=== PATIENT | female | born 1980 | race Caucasian/White ===

== ENCOUNTER → 2018-03-06 17:01 | Outpatient (REF) | payer OTHER, SELFPAY ==
[2018-03-06 18:08] LABS: T4 (Thyroxine) 11.5 ug/dl (4.7-13.3); Thyroid Stimulating Hormone 3.81 uIU/ml (0.358-3.740)
== END ==
LOC: LAB 17:01
PROVIDERS: Physician Assistant; Visit Provider Emergency Medicine
DX: E03.9 Hypothyroidism, unspecified (principal)
CPT/HCPCS: 84436; 84443

== ENCOUNTER → 2018-06-12 09:11 | Outpatient (CLI) | payer OTHER, SELFPAY ==
[2018-06-12 09:24] LABS: Basophils % 0.4 % (0.1-2.0); Eosinophils # 0.1 K/mm3 (0.0-0.4); Eosinophils % 1.3 % (0.1-12.0); Hematocrit 46.7 % (37.0-47.0); Hemoglobin 15.5 g/dL (12.2-16.2); Lymphocytes # 1.5 K/mm3 (0.7-4.5); Lymphocytes % 18.3 % (10-50); Mean Corpuscular HGB Conc 33.2 g/dL (31.8-35.4); Mean Corpuscular Hemoglobin 30.7 pg (27.0-31.2); Mean Corpuscular Volume 92.7 fl (81-99); Mean Platelet Volume 7.9 fl (7.4-10.4); Monocytes # 0.3 K/mm3 (0.1-1.0); Neutrophils # 6.1 K/mm3 (1.8-7.8); Neutrophils % 75.9 % (37.0-80.0); Platelet Count 269 K/mm3 (142-424); Red Blood Count 5.04 M/mm3 (4.20-5.40); Red Cell Distribution Width 12.8 % (11.5-17.5); White Blood Count 8.1 K/mm3 (4.8-10.8)
[2018-06-12 09:42] LABS: Alanine Aminotransferase 36 U/L (12-78); Albumin/Globulin Ratio 1.1 (1.1-1.8); Alkaline Phosphatase 51 U/L (46-116); Anion Gap 14.7 mEq/L (5-15); Aspartate Amino Transferase 18 U/L (15-37); Bilirubin,Total 1.1 mg/dL (0.2-1.0); Blood Urea Nitrogen 10 mg/dL (7-18); CKMB Relative Index 0.9 U/L (0-4.0); Calcium 8.8 mg/dL (8.5-10.1); Carbon Dioxide 24 mmol/L (21.0-32.0); Chloride 103 mmol/L (98-107); Chol/HDL Ratio 2.6 (1-3.5); Cholesterol 236 mg/dL (140-200); Creatine Kinase 115 U/L (26-192); Creatinine,Serum 0.96 mg/dL (0.55-1.02); Estimated Glomerular Filt Rate 65 ml/min (>60); GFR (African American) 79 ML/MIN (>60); Globulin 3.8 gm/dl (1.3-3.2); Glucose 116 mg/dL (74-106); HDL Cholesterol 90 mg/dL (29-89); LDL Cholesterol 124 mg/dL (0-130); Potassium 3.7 mmoL/L (3.5-5.1); Sodium 138 mmol/L (136-145); T4 (Thyroxine) 11.4 ug/dl (4.7-13.3); Total Protein,Serum 7.8 gm/dL (6.4-8.2); Triglycerides 111 mg/dL (30-200); Troponin I < 0.02 ng/ml (0.00-0.06); VLDL Cholesterol 22 mg/dL (0-40)
[2018-06-13 15:23] LABS: Folate >20.0 ng/mL (>3.0); Vitamin B12 895 pg/mL (232-1245); Vitamin D 25 Hydroxy 25.3 ng/mL (30.0-100.0)
== END ==
PROVIDERS: Visit Provider Physician Assistant
DX: E03.9 Hypothyroidism, unspecified (principal); R00.2 Palpitations
CPT/HCPCS: 80053; 80061; 82550; 82553; 82607; 82652; 82746; 84436; 84443; 84484; 85025

== ENCOUNTER → 2018-09-09 13:33 | Outpatient (CLI) | payer OTHER, SELFPAY ==
[2018-09-09 13:46] LABS: Basophils % 0.5 % (0.1-2.0); Eosinophils # 0.2 K/mm3 (0.0-0.4); Eosinophils % 3.2 % (0.1-12.0); Hemoglobin 14.3 g/dL (12.2-16.2); Lymphocytes # 2.1 K/mm3 (0.7-4.5); Mean Corpuscular HGB Conc 33.2 g/dL (31.8-35.4); Mean Corpuscular Hemoglobin 31.1 pg (27.0-31.2); Mean Corpuscular Volume 93.6 fl (81-99); Mean Platelet Volume 9.6 fl (7.4-10.4); Monocytes # 0.4 K/mm3 (0.1-1.0); Monocytes % 5.6 % (1.7-9.3); Neutrophils # 3.7 K/mm3 (1.8-7.8); Neutrophils % 57.6 % (37.0-80.0); Platelet Count 232 K/mm3 (142-424); Red Blood Count 4.59 M/mm3 (4.20-5.40); Red Cell Distribution Width 12.7 % (11.5-17.5); White Blood Count 6.4 K/mm3 (4.8-10.8)
[2018-09-09 14:25] LABS: Alanine Aminotransferase 32 U/L (12-78); Albumin Level 3.7 gm/dL (3.4-5.0); Albumin/Globulin Ratio 1.1 (1.1-1.8); Alkaline Phosphatase 44 U/L (46-116); Anion Gap 14.8 mEq/L (5-15); Aspartate Amino Transferase 24 U/L (15-37); Blood Urea Nitrogen 16 mg/dL (7-18); Calcium 8.7 mg/dL (8.5-10.1); Carbon Dioxide 26 mmol/L (21.0-32.0); Chloride 105 mmol/L (98-107); Chol/HDL Ratio 2.6 (1-3.5); Cholesterol 166 mg/dL (140-200); Creatinine,Serum 0.93 mg/dL (0.55-1.02); Estimated Glomerular Filt Rate 67 ml/min (>60); GFR (African American) 81 ML/MIN (>60); Globulin 3.5 gm/dl (1.3-3.2); Glucose 98 mg/dL (74-106); HDL Cholesterol 63 mg/dL (29-89); LDL Cholesterol 82 mg/dL (0-130); Potassium 3.8 mmoL/L (3.5-5.1); Sodium 142 mmol/L (136-145); Total Protein,Serum 7.2 gm/dL (6.4-8.2); Triglycerides 104 mg/dL (30-200); VLDL Cholesterol 21 mg/dL (0-40)
[2018-09-11 07:32] LABS: Vitamin D 25 Hydroxy 40.7 ng/mL (30.0-100.0)
== END ==
PROVIDERS: Visit Provider Physician Assistant
DX: E03.9 Hypothyroidism, unspecified (principal); E55.9 Vitamin D deficiency, unspecified; E78.5 Hyperlipidemia, unspecified
CPT/HCPCS: 80053; 80061; 82652; 84436; 84443; 85025

== ENCOUNTER → 2019-03-10 13:35 | Outpatient (CLI) | payer OTHER, SELFPAY ==
[2019-03-10 14:32] LABS: T4 (Thyroxine) 11.9 ug/dl (4.7-13.3); Thyroid Stimulating Hormone 0.29 uIU/ml (0.358-3.740)
== END ==
PROVIDERS: Visit Provider Physician Assistant
DX: E03.9 Hypothyroidism, unspecified (principal)
CPT/HCPCS: 84436; 84443

== ENCOUNTER → 2019-04-03 13:18 | Outpatient (CLI) | payer OTHER, SELFPAY ==
[2019-04-03 13:40] LABS: Basophils % 0.5 % (0.1-2.0); Eosinophils # 0.2 K/mm3 (0.0-0.4); Eosinophils % 2.2 % (0.1-12.0); Hematocrit 45.4 % (37.0-47.0); Hemoglobin 14.9 g/dL (12.2-16.2); Lymphocytes # 1.4 K/mm3 (0.7-4.5); Lymphocytes % 21.6 % (10-50); Mean Corpuscular HGB Conc 32.7 g/dL (31.8-35.4); Mean Corpuscular Hemoglobin 31.1 pg (27.0-31.2); Monocytes # 0.4 K/mm3 (0.1-1.0); Monocytes % 5.5 % (1.7-9.3); Neutrophils # 4.7 K/mm3 (1.8-7.8); Neutrophils % 70.2 % (37.0-80.0); Platelet Count 306 K/mm3 (142-424); Red Blood Count 4.78 M/mm3 (4.20-5.40); Red Cell Distribution Width 12.7 % (11.5-17.5); White Blood Count 6.6 K/mm3 (4.8-10.8)
[2019-04-03 15:01] LABS: Alanine Aminotransferase 20 U/L (12-78); Albumin Level 3.9 gm/dL (3.4-5.0); Albumin/Globulin Ratio 1.1 (1.1-1.8); Alkaline Phosphatase 46 U/L (46-116); Anion Gap 14.8 mEq/L (5-15); Aspartate Amino Transferase 15 U/L (15-37); Bilirubin,Total 1.3 mg/dL (0.2-1.0); Blood Urea Nitrogen 10 mg/dL (7-18); Calcium 8.9 mg/dL (8.5-10.1); Carbon Dioxide 26 mmol/L (21.0-32.0); Chloride 104 mmol/L (98-107); Chol/HDL Ratio 2.6 (1-3.5); Cholesterol 167 mg/dL (140-200); Creatinine,Serum 0.93 mg/dL (0.55-1.02); Estimated Glomerular Filt Rate 67 ml/min (>60); GFR (African American) 81 ML/MIN (>60); Globulin 3.4 gm/dl (1.3-3.2); Glucose 91 mg/dL (74-106); HDL Cholesterol 65 mg/dL (29-89); LDL Cholesterol 77 mg/dL (0-130); Potassium 3.8 mmoL/L (3.5-5.1); Sodium 141 mmol/L (136-145); T4 (Thyroxine) 11.8 ug/dl (4.7-13.3); Thyroid Stimulating Hormone 2.01 uIU/ml (0.358-3.740); Total Protein,Serum 7.3 gm/dL (6.4-8.2); Triglycerides 123 mg/dL (30-200); VLDL Cholesterol 25 mg/dL (0-40)
[2019-04-04 17:13] LABS: Folate >20.0 ng/mL (>3.0); Vitamin D 25 Hydroxy 27.8 ng/mL (30.0-100.0)
== END ==
PROVIDERS: Visit Provider Physician Assistant
DX: E55.9 Vitamin D deficiency, unspecified (principal); E78.5 Hyperlipidemia, unspecified
CPT/HCPCS: 80053; 80061; 82652; 82746; 84436; 84443; 85025

== ENCOUNTER → 2019-04-14 15:18 | Outpatient (CLI) | payer OTHER, SELFPAY ==
--- NOTE | 2019-04-14 15:21 | US_ITS ---
PROCEDURE: US THYROID CLINICAL INDICATION: Thyroid goiter Goiter, Stas's thyroiditis COMPARISON: THY US THYROID from 01/22/2013 FINDINGS: Right lobe: 3.5 x 0.8 x 1.2 cm. Coarse echogenicity. There is a 9 x 6 mm hypoechoic nodule in the mid polar region posteriorly Left lobe: 2.5 x 0.7 by 0.6 cm with coarse echogenicity but no discrete nodule. Isthmus: Unremarkable Additional findings: IMPRESSION: Small thyroid gland with heterogeneous echogenicity. There is a 9 x 6 mm hypoechoic nodule in the mid polar region on the right previously measuring 1.4 x 0.9 cm. Dictated by: Romulo Dolan MD 04/14/2019 17:37 Electronically signed by Romulo Dolan MD in [place] 04/14/2019 17:37
--- NOTE | 2019-04-14 15:21 | XR_ITS ---
PROCEDURE: XR CERVICAL SPINE 4V CLINICAL INDICATION: Neck pain/headache COMPARISON: No exams were available for comparison FINDINGS: Normal alignment. No fracture or dislocation. No lytic or blastic change. The disc spaces are well preserved. No foraminal narrowing apparent. IMPRESSION: Negative cervical spine Dictated by: Romulo Dolan MD 04/14/2019 16:39 Electronically signed by Romulo Dolan MD in [place] 04/14/2019 16:39
== END ==
PROVIDERS: PCP Physician Assistant; Visit Provider Physician Assistant
DX: M54.2 Cervicalgia (principal); E04.9 Nontoxic goiter, unspecified
CPT/HCPCS: 72050; 76536

== ENCOUNTER → 2019-04-23 09:56 | Outpatient (CLI) | payer OTHER, SELFPAY ==
--- NOTE | 2019-04-23 | CA_ITS ---
APPROVED REPORT Exam: Exercise Treadmill Technologist: Renata Lin Ht: 5 ft 7 in Wt: 175 lbs BSA: 1.91 m2 HR: 61 bpm BP: 133/78 mmHg Indications: CAD Medical History Medications: Aspirin,,,,, Synthroid,,,,, Zocor,,,,, Vitamin D,,,,, Stress Test Details Test: Isaiah HR Resting HR: 74 bpm Max Heart Rate (APMHR): 181 bpm Max HR Achieved: 175 bpm Target HR (85% APMHR): 153 bpm % of APMHR: 96 Recovery HR: 90 bpm BP Max BP: 163.0/89.0 mmHg Recovery BP: 141.0/79.0 mmHg ECG Clinical Exercise duration: 10:30 min Highest Stage Achieved: Exercise capacity: 12.8 METs Stress ECG Conclusion Resting ECG: Sinus arrhythmia, right axis deviation, NS ST abnormality. Patient exercised 10:30 on Isaiah Protocol. Test stopped due to shortness of air, fatigue. Symptoms: No chest pain Arrhythmias/Ectopy: Occasional isolated PVC. ST-T Changes: 1.5 to [address] depression inferiorly and 1 mm laterally. Conclusion: EKG changes positive for ischemia. Myoview images reported separately. Test Summary Stage 4 01:30 16.0 4.2 172 . . . . REST 10:21 0.0 0.0 74 . . . . Stage 1 01:00 10.0 1.7 91 . . . . Stage 1 02:00 10.0 1.7 100 . . . . Stage 1 03:00 10.0 1.7 110 . 150/ 78 . . Stage 2 01:00 12.0 2.5 114 . . . . Stage 2 02:00 12.0 2.5 124 . . . . Stage 2 03:00 12.0 2.5 121 . 152/ 74 . . Stage 3 01:00 14.0 3.4 136 . . . . Stage 3 02:00 14.0 3.4 144 . . . . Stage 3 03:00 14.0 3.4 155 . 160/ 76 . . Stage 4 . . . . . . . Myoview Injected Stage 4 01:00 16.0 4.2 168 . . . . Stage 4 01:30 16.0 4.2 172 . . . Stop exercise at 10:30 RECOVERY 01:00 0.0 0.0 157 . 144/ 66 . . RECOVERY 02:00 0.0 0.0 135 . 144/ 66 . . RECOVERY 03:00 0.0 0.0 114 . 163/ 89 . . RECOVERY 04:00 0.0 0.0 108 . 163/ 89 . . RECOVERY 05:00 0.0 0.0 99 . 133/ 80 . . RECOVERY 06:00 0.0 0.0 97 . 133/ 80 . . RECOVERY 07:00 0.0 0.0 91 . 133/ 80 . . RECOVERY 07:16 0.0 0.0 95 . 141/ 79 . . Electronically signed by : Al Durham, 04/29/2019 15:03:13
--- NOTE | 2019-04-23 09:57 | NM_ITS ---
APPROVED REPORT Exam: Nuclear Stress Test Indication: CAD, H/O M.I., HYPERLIPIDEMIA, ADN EKG Patient Location: Outpatient Stress Tech: Renata Lin RI Tech:FATUMA Martinez RT (R)(N)(M) Ht: 5 ft 7 in Wt: 175 lbs Bra Size: C HR: 61 bpm BP: 133/78 mmHg BSA: 1.91 m2 BMI: 27.4 History: CAD, H/O M.I., HYPERLIPIDEMIA, ADN EKG Procedure: Patient exercised on Isaiah protocol 10:30 minutes and sec, resting heart rate 61 bpm, resting blood pressure 133/78 mmHg, with exercise maximum heart rate achived was 175 bpm which is % of the maximum predicted heart rate and blood pressure was 150/76 mmHg. Patient denied any complaint of chest pain. Cardiac Stress and Resting SPECT Images: Cardiac Stress and Resting SPECT images were obtained using technetium 99m Myoview 31.1 mCi stress and 10.50 mCi at rest. EF 67% Breast attenuation artifact anterior/septal region No fixed or reversible defects Conclusion: Normal EF with no evidence of ischemia or infarction Electronically signed by : Romulo Dolan MD 04/25/2019 09:26:22
--- NOTE | 2019-04-23 09:57 | CA_ITS ---
[facility] RADIOLOGICAL CONSULTATION Patient Name : JENNIFER HOANG X-RAY # : [id number] Physician: RAVINDER SONG AGE: 38Y : 1980 00:00:00 ( F ) Exam : CA ECHO DOPPLER COMPLETE ACC # : [id number] Study Date : 04/23/2019 10:13:42 Patient Class : O FINAL REPORT CLINICAL DATA: FINDINGS: TRANSCRIBED REPORT EXAM: Comprehensive 2D, Doppler, and color-flow Echocardiogram Marine Equipment Design Engineer: Brittanie Mason RDCS Ht: 5 ft 6 in Wt: 177lbs BSA: 1.90 BP: 118/75 mmHg Indications: Abnormal ECG, CAD, Hyperlipidemia, Hypertension/HDD,HX OF SC 2D Dimensions LVOT 1.95 cm (M/F) 1.5-2.5 M-Mode Dimensions RVDd 2.04 cm (0.9-2.6) LVDd 5.16 cm (3.5-5.7) LVDs 3.24 cm (3.5-5.7) IVSd 0.70 cm (0.6-1.1) PWd 0.70 cm (0.6-1.1) EF (Teich) 66.80% FS 37.20% EDV (Teich) 127.20 mL ESV (Teich) 42.20 mL LV Diastology E/A Ratio 1.44 Mitral Valve MV A Velocity 60.00 (40-130 cm/s) Electronically signed by : IMPRESSION: Dictated by at Transcribed by at
--- NOTE | 2019-04-23 13:22 | HMH.ITSHM ---
Current Home Medications as stated by this patient Julieta Dejesus or field representative. []zocor synthroid asa vit d
== END ==
PROVIDERS: PCP Physician Assistant; Visit Provider Physician Assistant
DX: I25.2 Old myocardial infarction (principal); E78.5 Hyperlipidemia, unspecified; I10 Essential (primary) hypertension; R94.31 Abnormal electrocardiogram [ECG] [EKG]
CPT/HCPCS: 78452; 93017; 93306; A9502

== ENCOUNTER → 2019-04-28 14:06 | Outpatient (CLI) | payer OTHER, SELFPAY ==
--- NOTE | 2019-04-28 14:10 | CT_ITS ---
PROCEDURE: CT SOFT TISSUE NECK WO CON CLINICAL HISTORY: Posterior neck pain, goiter, COMPARISON: No exams were available for comparison TECHNIQUE: Oral Contrast: None IV Contrast: None Axial images obtained with sagittal and coronal reformats. All CT scans at the facility use one or more dose reduction, viz: automated exposure control, ma/kV adjustment per patient size (including targeted exams where dose is matched to indication, i.e. head), or iterative reconstruction technique. FINDINGS: No mass, abnormal fluid collection, or dominant adenopathy is evident. There are scattered small nodes in the neck on both sides. The parotid and submandibular glands are unremarkable. The nasopharynx, oropharynx, hypopharynx, epiglottis, and glottic region have an unremarkable appearance. There is some mild attenuation of the left aryepiglottic fold which could be due to nondistention. No obvious thyroid mass. Lung apices are clear. No acute bony findings. IMPRESSION: Essentially negative nonenhanced CT scan of the neck Dictated by: Romulo Dolan MD 04/30/2019 06:05 Electronically signed by Romulo Dolan MD in [place] 04/30/2019 06:05
--- NOTE | 2019-04-28 14:10 | CT_ITS ---
PROCEDURE: CT HEAD/BRAIN WO CON CLINICAL INDICATION: see below Posterior headaches, posterior neck pain COMPARISON: No exams were available for comparison TECHNIQUE: Axial images obtained. All CT scans at the facility use one or more dose reduction, viz: automated exposure control, ma/kV adjustment per patient size (including targeted exams where dose is matched to indication, i.e. head), or iterative reconstruction technique. FINDINGS: No midline shift, mass effect, intracranial hemorrhage, hydrocephalus, or extra-axial fluid collection is evident. The calvarium has an unremarkable appearance. No mastoid effusion. No sinus air-fluid level. IMPRESSION: No acute intracranial finding Dictated by: Romulo Dolan MD 04/28/2019 15:45 Electronically signed by Romulo Dolan MD in [place] 04/28/2019 15:45
== END ==
PROVIDERS: PCP Physician Assistant; Visit Provider Physician Assistant
DX: R51 Headache (principal); M54.2 Cervicalgia; E04.1 Nontoxic single thyroid nodule; R13.10 Dysphagia, unspecified; R23.2 Flushing
CPT/HCPCS: 70450; 70490

== ENCOUNTER → 2019-06-09 14:42 | Outpatient (CLI) | payer OTHER, SELFPAY ==
[2019-06-09 15:09] LABS: Basophils % 0.5 % (0.1-2.0); Eosinophils # 0.2 K/mm3 (0.0-0.4); Eosinophils % 2.1 % (0.1-12.0); Hematocrit 48.8 % (37.0-47.0); Hemoglobin 15.2 g/dL (12.2-16.2); Lymphocytes # 1.9 K/mm3 (0.7-4.5); Lymphocytes % 21.4 % (10-50); Mean Corpuscular HGB Conc 31.1 g/dL (31.8-35.4); Mean Corpuscular Hemoglobin 30.2 pg (27.0-31.2); Mean Corpuscular Volume 96.9 fl (81-99); Mean Platelet Volume 9.7 fl (7.4-10.4); Monocytes # 0.5 K/mm3 (0.1-1.0); Monocytes % 5.7 % (1.7-9.3); Neutrophils # 6.2 K/mm3 (1.8-7.8); Neutrophils % 70.3 % (37.0-80.0); Platelet Count 324 K/mm3 (142-424); Red Blood Count 5.04 M/mm3 (4.20-5.40); White Blood Count 8.8 K/mm3 (4.8-10.8)
[2019-06-09 15:56] LABS: Alanine Aminotransferase 21 U/L (12-78); Albumin Level 4.1 gm/dL (3.4-5.0); Albumin/Globulin Ratio 1.1 (1.1-1.8); Alkaline Phosphatase 50 U/L (46-116); Anion Gap 13.7 mEq/L (5-15); Aspartate Amino Transferase 10 U/L (15-37); Bilirubin,Total 0.8 mg/dL (0.2-1.0); Blood Urea Nitrogen 16 mg/dL (7-18); Calcium 8.8 mg/dL (8.5-10.1); Carbon Dioxide 29 mmol/L (21.0-32.0); Chloride 101 mmol/L (98-107); Creatinine,Serum 1.03 mg/dL (0.55-1.02); Estimated Glomerular Filt Rate 60 ml/min (>60); GFR (African American) 72 ML/MIN (>60); Globulin 3.8 gm/dl (1.3-3.2); Glucose 93 mg/dL (74-106); Potassium 3.7 mmoL/L (3.5-5.1); Sodium 140 mmol/L (136-145); T4 (Thyroxine) 12.5 ug/dl (4.7-13.3); Thyroid Stimulating Hormone 5.17 uIU/ml (0.358-3.740); Total Protein,Serum 7.9 gm/dL (6.4-8.2)
[2019-06-09 16:33] LABS: Erythrocyte Sedimentation Rate 12 mm/hr (0-20)
[2019-06-11 15:30] LABS: Thyroid Peroxidase Antibodies 22 IU/mL (0-34)
[2019-06-12 13:16] LABS: Thyroglobulin Level 104.2 IU/mL (0.0-0.9)
== END ==
PROVIDERS: Visit Provider Emergency Medicine
DX: M54.2 Cervicalgia (principal)
CPT/HCPCS: 80053; 84436; 84443; 85025; 85651; 86376; 86800

== ENCOUNTER → 2019-06-16 07:32 | Outpatient (CLI) | payer OTHER, SELFPAY ==
[2019-06-23 16:39] LABS: 5-HIAA, Urine 1.6 mg/L (Undefined); 5-HIAA, Urine, 24Hr. 2.6 mg/24 hr (0.0-14.9)
== END ==
PROVIDERS: Visit Provider Physician Assistant
DX: R23.2 Flushing (principal)
CPT/HCPCS: 83497

== ENCOUNTER → 2019-08-07 11:02 | Outpatient (CLI) | payer OTHER, SELFPAY ==
--- NOTE | 2019-08-07 11:02 | MR_ITS ---
PROCEDURE: MR HEAD/BRAIN WO CON CLINICAL INDICATION: facial flushing, right mastoid pain Right mastoid pain, headache burning sensation in face COMPARISON: CT HEAD/BRAIN WO CON from 04/28/2019 TECHNIQUE: Routine multiplanar multi echo sequences are performed without gadolinium enhancement. FINDINGS: No midline shift, mass effect, intracranial hemorrhage, hydrocephalus, or acute infarction is evident. The cerebellopontine angles, cerebellum, and brainstem are unremarkable. There are 2 small T2 white matter hyperintensities in the left frontal lobe. These are nonspecific. The pituitary, optic, corpus callosum and craniocervical junction have an appearance. There is mild bulging disc at C3-C4 with narrowing of the canal at that level with minimal flattening of the cord anteriorly. No mastoid effusion or sinus air-fluid level. IMPRESSION: The 1. No acute intracranial findings. 2. Nonspecific T2 white matter hyperintensities in the left frontal lobe. These are nonspecific. The most common etiology would be small ischemic gliotic foci however the patient's age is somewhat young for that etiology. Differential diagnosis includes sequela from migraine headache or demyelinating process. Consider six-month follow-up without and with gadolinium enhancement to confirm stability. 3. Bulging disc at C3-C4 with narrowing of the canal at that level Dictated by: Romulo Dolan MD 08/08/2019 09:07 Electronically signed by Romulo Dolan MD in [place] 08/08/2019 09:07
== END ==
PROVIDERS: PCP Physician Assistant; Visit Provider Physician Assistant
DX: H92.01 Otalgia, right ear (principal); R23.2 Flushing
CPT/HCPCS: 70551

== ENCOUNTER → 2019-08-14 09:52 | Outpatient (CLI) | payer OTHER, SELFPAY ==
--- NOTE | 2019-08-14 09:52 | US_ITS ---
PROCEDURE: US FNA THYROID CLINICAL INDICATION: Hypothyroid, right thyroid nodule COMPARISON: THY US THYROID from 01/22/2013 US THYROID from 04/14/2019 TECHNIQUE: Following obtaining informed consent, using aseptic technique and local anesthesia with buffered lidocaine, fine-needle aspiration was performed of the nodule of interest using sonographic guidance. 3 passes were made into the nodule with a 21-gauge needle. Specimen was given to cytology. FINDINGS: CYTOLOGY: Nondiagnostic specimen. IMPRESSION: Nondiagnostic FNA. Repeat sampling can be performed at no additional charge clinically desired. Pathologist will be asked to be on hand for review of the specimen to confirm adequate sampling. The patient tolerated the procedure well without evidence of immediate complications and left the ultrasound suite in stable condition. Dictated by: Romulo Dolan MD 08/16/2019 11:13 Electronically signed by Romulo Dolan MD in [place] 08/16/2019 11:13
== END ==
PROVIDERS: PCP Physician Assistant; Visit Provider Physician Assistant
DX: E04.1 Nontoxic single thyroid nodule (principal)
CPT/HCPCS: 10005; 76942

== ENCOUNTER → 2020-02-22 13:20 | Outpatient (CLI) | payer OTHER, SELFPAY | PROVIDERS: PCP Physician Assistant; Visit Provider Nurse Practitioner | DX: Z03.818 Encounter for observation for suspected exposure to other biological agents ruled out (principal) | CPT/HCPCS: U0003; U0004 ==

== ENCOUNTER → 2020-02-22 17:34 | Outpatient (CLI) | payer OTHER, SELFPAY ==
[2020-02-24 15:52] LABS: Covid-19 Nasal PCR Sendout Lex POSITIVE
== END ==
PROVIDERS: PCP Emergency Medicine; Visit Provider Nurse Practitioner
DX: Z20.828 Contact with and (suspected) exposure to other viral communicable diseases (principal); U07.1 COVID-19
CPT/HCPCS: U0003; U0004

== ENCOUNTER → 2020-03-01 11:45 | Outpatient (CLI) | payer OTHER, SELFPAY ==
[2020-03-02 13:15] LABS: Covid-19 Nasal PCR Sendout Lex Positive
== END ==
PROVIDERS: PCP Emergency Medicine; Visit Provider Internal Medicine Adolescent Medicine
DX: Z20.828 Contact with and (suspected) exposure to other viral communicable diseases (principal); U07.1 COVID-19
CPT/HCPCS: U0003; U0004

== ENCOUNTER → 2020-03-02 14:30 | Outpatient (CLI) | payer OTHER, SELFPAY ==
[2020-03-02 16:50] LABS: Coronavirus 19 IgG Antibody Positive (Negative); Coronavirus 19 IgM Antibody Negative (Negative)
== END ==
PROVIDERS: PCP Physician Assistant; Visit Provider Internal Medicine Adolescent Medicine
DX: Z20.828 Contact with and (suspected) exposure to other viral communicable diseases (principal); U07.1 COVID-19
CPT/HCPCS: 36415; 86328

== ENCOUNTER → 2020-04-13 16:45 | Outpatient (CLI) | payer OTHER, SELFPAY ==
--- NOTE | 2020-04-13 16:45 | MM_ITS ---
PROCEDURE: MM DIG SCREENING MAMM BI W/CAD Digital Breast Tomosynthesis Included CLINICAL INDICATION: screening There is no personal or family history of breast cancer. COMPARISON: This is a baseline screening exam, patient without complaints TECHNIQUE: Standard CC and MLO images and 3D Tomosynthesis was obtained. R2 CAD reviewed. FINDINGS: Moderate diffuse fibroglandular densities are seen throughout both breasts. There is minimal asymmetric glandular elements near the axillary tail left breast. There is no suspicious lesion in either breast and no suspicious microcalcifications. IMPRESSION: Moderate diffuse breast density with no suspicious lesions seen BI-RAD Category: 1 Negative FOLLOW-UP: 1YR 1 Year Follow-up (A letter has been sent to the patient regarding results of the study.) Dictated by: Dr. Elpidio Talamantes MD 04/15/2020 19:43 Dr. Elpidio Talamantes MD in [place] 04/15/2020 19:43
== END ==
PROVIDERS: PCP Physician Assistant; Visit Provider Physician Assistant
DX: Z12.31 Encounter for screening mammogram for malignant neoplasm of breast (principal)
CPT/HCPCS: 77063; 77067

== ENCOUNTER → 2020-09-04 07:47 | Outpatient (CLI) | payer OTHER, SELFPAY ==
--- NOTE | 2020-09-04 07:48 | MR_ITS ---
PROCEDURE: MR HEAD/BRAIN WO/W CON CLINICAL INDICATION: headache, flushing, pain in base of head COMPARISON: MR MR HEAD/BRAIN WO CON from 08/07/2019 TECHNIQUE: Routine multiplanar multi echo sequences are performed without gadolinium enhancement. FINDINGS: No midline shift, mass effect, intracranial hemorrhage, hydrocephalus. No evidence of acute infarction. The cerebellopontine angles, cerebellum, brainstem and mid brain have an unremarkable appearance. There remains mild nonspecific T2 white matter hyperintensity within the left frontal lobe. This does not demonstrate contrast enhancement. This is not significantly changed. No new areas of white matter abnormality apparent. No abnormal enhancing lesions. No mastoid effusion or sinus air-fluid level. IMPRESSION: 1. No significant change with no acute intracranial findings. 2. No change nonspecific small focus of T2 white matter hyperintensity left frontal lobe as previously described Dictated by: Romulo Dolan MD 09/04/2020 10:27 Romulo Dolan MD in [place] 09/04/2020 10:27
== END ==
PROVIDERS: PCP Physician Assistant; Visit Provider Physician Assistant
DX: R51.9 Headache, unspecified (principal)
CPT/HCPCS: 70553; A9576

== ENCOUNTER → 2020-09-16 12:44 | Outpatient (CLI) | payer OTHER, SELFPAY ==
--- NOTE | 2020-09-16 12:45 | US_ITS ---
PROCEDURE: US FNA THYROID CLINICAL INDICATION: Right thyroid nodule. Initial nondiagnostic FNA 08/14/2019 COMPARISON: US US FNA THYROID from 08/14/2019 FINDINGS: Pre biopsy images are obtained once again demonstrating an ill-defined area of decreased echogenicity in the right thyroid lobe measuring approximately 1.3 cm not significantly changed. This area was previously sampled with FNA what was nondiagnostic. The pathologist was present on today's procedure. Following obtaining informed consent and time-out procedure under aseptic conditions and local anesthesia with 1 percent buffered lidocaine, 4 passes were made into the nodule confirmed with ultrasound. The specimen is once again nondiagnostic. In lieu of the position of the nodule and the fact it is not changed in 1 year. No additional sampling was performed. The nodule is deep in the right lobe of the thyroid gland and only mm from the carotid artery. Continued yearly follow-up suggested. IMPRESSION: Uneventful ultrasound-guided FNA of the right thyroid nodule. However, cytology was non diagnostic despite having a pathologist present with definite intra nodule location of the needle on the ultrasound. The nodule does not appear to change in 1 year. Suggest annual follow-up to confirm stability Dictated by: Romulo Dolan MD 09/24/2020 09:04 Romulo Dolan MD in [place] 09/24/2020 09:04
== END ==
PROVIDERS: PCP Physician Assistant; Visit Provider Physician Assistant
DX: E04.1 Nontoxic single thyroid nodule (principal)
CPT/HCPCS: 10005; 76536

== ENCOUNTER → 2020-10-07 12:47 | Outpatient (CLI) | payer OTHER, SELFPAY ==
--- NOTE | 2020-10-07 12:47 | CT_ITS ---
PROCEDURE: CT SOFT TISSUE NECK WO/W CON CLINICAL HISTORY: sensation of something pressing on neck/throat Right throat area x1.5yrs Hx of thyroid Face flushing Biopsy x2... COMPARISON: CT CT SOFT TISSUE NECK WO CON from 04/28/2019 US US FNA THYROID from 09/16/2020 TECHNIQUE: Oral Contrast: None IV Contrast: 75 mL Isovue 370 Axial images obtained with sagittal and coronal reformats. All CT scans at the facility use one or more dose reduction, viz: automated exposure control, ma/kV adjustment per patient size (including targeted exams where dose is matched to indication, i.e. head), or iterative reconstruction technique. FINDINGS: There is some fullness in the left fossa of Rosenmuller within the nasopharynx. No enhancing lesions. This may only be due to nondistention. Cannot exclude a mucosal abnormality. Direct visualization may provide further evaluation. The epiglottis and glottic region has an unremarkable appearance. No mass or abscess. The thyroid gland has an unremarkable appearance with no obvious mass. No surrounding abscess or hematoma. Unremarkable appearing superior mediastinum. There are few small cervical nodes but no evidence of adenopathy. The parotid and submandibular glands are unremarkable. The lung apices are clear. The visualized paranasal sinuses and mastoid sinuses are unremarkable. IMPRESSION: 1. Minimal fullness in the left fossa Rosenmuller within the nasopharynx which may only be due to nondistention. This is however present on both the pre and post enhanced images. Direct visualization may exclude mucosal edema or mucosal lesion. 2. Otherwise negative CT neck without and with contrast. Dictated by: Romulo Dolan MD 10/08/2020 12:16 Romulo Dolan MD in [place] 10/08/2020 12:16
== END ==
PROVIDERS: PCP Physician Assistant; Visit Provider Physician Assistant
DX: J39.2 Other diseases of pharynx (principal)
CPT/HCPCS: 70492; Q9967

== ENCOUNTER → 2020-10-27 07:30 | Outpatient (CLI) | payer OTHER, SELFPAY ==
[2020-10-28 16:02] LABS: H. pylori Breath Test Negative (Negative)
== END ==
PROVIDERS: Visit Provider Physician Assistant
DX: R10.11 Right upper quadrant pain (principal); R23.2 Flushing
CPT/HCPCS: 83013

== ENCOUNTER → 2020-11-02 09:25 | Outpatient (POV) | payer OTHER, SELFPAY | PROVIDERS: Visit Provider Otolaryngology | DX: Z00.00 Encounter for general adult medical examination without abnormal findings (principal) ==

== ENCOUNTER → 2020-11-09 08:08 | Outpatient (POV) | payer OTHER, SELFPAY | PROVIDERS: Visit Provider Dermatology | DX: Z00.00 Encounter for general adult medical examination without abnormal findings (principal) ==

== ENCOUNTER → 2021-01-18 07:24 | Outpatient (CLI) | payer OTHER, SELFPAY ==
--- NOTE | 2021-01-18 07:26 | CT_ITS ---
PROCEDURE: CT ABDOMEN PELVIS WO CON CLINICAL INDICATION: LLQ pain COMPARISON: CT ABDPELW/O CT ABD PELVIS W/O CONTRAST from 04/29/2014 TECHNIQUE: Axial images obtained with sagittal and coronal reformats. All CT scans at the facility use one or more dose reduction, viz: automated exposure control, ma/kV adjustment per patient size (including targeted exams where dose is matched to indication, i.e. head), or iterative reconstruction technique. FINDINGS: LOWER THORAX: Unremarkable Evaluation of the upper abdominal solid viscera is limited due to lack of intravenous contrast. HEPATOBILIARY: Liver: No focal hepatic lesions within the limitations of unenhanced study.. Gallbladder: The gallbladder is surgically absent. Biliary: No intrahepatic or extrahepatic ductal dilation. PANCREAS: No focal masses or ductal dilatation. SPLEEN:No splenomegaly. ADRENALS:No adrenal nodules. KIDNEYS/URETERS/BLADDER: Nonobstructing left renal calculus is noted measuring 5 millimeters. No evidence of hydronephrosis. PERITONEUM / RETROPERITONEUM: No free air or fluid. Peritoneum LYMPH NODES: No free air or fluid. GI TRACT: Scattered uncomplicated colonic diverticula are present. No evidence of inflammation or bowel obstruction. Appendix is normal The visualized pelvic structures are unremarkable. Essure device noted bilaterally. VASCULAR:The aorta is normal in caliber, without evidence of abdominal aortic aneurysm or dissection. ABDOMINAL WALL: Intact SOFT TISSUES: Unremarkable. BONES: Unremarkable. IMPRESSION: Few scattered colonic diverticula without evidence of diverticulitis. Left nonobstructing renal calculus measuring 5 millimeters. No evidence of hydronephrosis. Dictated by: Felicita Preston 01/18/2021 10:01 Felicita Preston in [place] 01/18/2021 10:01
== END ==
PROVIDERS: PCP Physician Assistant; Visit Provider Physician Assistant
DX: R10.32 Left lower quadrant pain (principal)
CPT/HCPCS: 74176

== ENCOUNTER → 2021-02-08 13:50 | Outpatient (CLI) | payer OTHER, SELFPAY | PROVIDERS: Visit Provider Physician Assistant | DX: N76.0 Acute vaginitis (principal) | CPT/HCPCS: 87210 ==

== ENCOUNTER → 2021-02-17 14:06 | Outpatient (CLI) | payer OTHER, SELFPAY ==
[2021-02-17 14:53] LABS: Hemoglobin A1C 5.2 % (4.0-6.0)
[2021-02-17 16:31] LABS: Free T4 (Free Thyroxine) 1.82 ng/dl (0.78-2.19)
[2021-02-17 17:25] LABS: Thyroid Stimulating Hormone 5.29 uIU/mL (0.465-4.68)
== END ==
PROVIDERS: Visit Provider Physician Assistant
DX: E03.9 Hypothyroidism, unspecified (principal)
CPT/HCPCS: 83036; 84439; 84443

== ENCOUNTER → 2021-03-23 11:20 | Outpatient (CLI) | payer OTHER, SELFPAY | PROVIDERS: Visit Provider Physician Assistant | DX: B37.3 Candidiasis of vulva and vagina (principal) | CPT/HCPCS: 87210 ==

== ENCOUNTER → 2021-03-28 14:26 | Outpatient (CLI) | payer OTHER, SELFPAY | PROVIDERS: Visit Provider Physician Assistant | DX: N76.0 Acute vaginitis (principal) ==

== ENCOUNTER → 2021-03-29 18:21 | Outpatient (CLI) | payer OTHER, SELFPAY | PROVIDERS: Visit Provider Physician Assistant | DX: N76.0 Acute vaginitis (principal) ==

== ENCOUNTER → 2021-05-19 16:22 | Outpatient (CLI) | payer OTHER, SELFPAY ==
--- NOTE | 2021-05-19 16:22 | MM_ITS ---
PROCEDURE INFORMATION: Exam: MG Bilateral Screening 3D Mammography Exam date and time: 05/19/2021 4:22 PM Age: 40 years old Clinical indication: Encounter for screening mammogram for malignant neoplasm of breast TECHNIQUE: Imaging protocol: Bilateral screening tomosynthesis and 2D mammography including computer-aided detection (CAD) when performed. COMPARISON: MG MM DIG SCREENING MAMM BI W/CAD 04/13/2020 4:47 PM FINDINGS: MAMMOGRAPHY: Breast composition: The breast tissue is composed of scattered areas of fibroglandular density. Mass: None. Architectural distortion: None. Calcifications: No suspicious calcifications. Asymmetric density: None. Skin thickening: None. Axillary adenopathy: None. IMPRESSION: No mammographic evidence of malignancy. Annual screening is recommended unless otherwise clinically indicated. ASSESSMENT: BI-RADS Category 1: Negative
== END ==
PROVIDERS: PCP Physician Assistant; Visit Provider Physician Assistant
DX: Z12.31 Encounter for screening mammogram for malignant neoplasm of breast (principal)
CPT/HCPCS: 77063; 77067

== ENCOUNTER → 2021-07-15 11:15 | Outpatient (CLI) | payer OTHER, SELFPAY | PROVIDERS: Visit Provider Physician Assistant | DX: N89.8 Other specified noninflammatory disorders of vagina (principal) | CPT/HCPCS: 87210 ==

== ENCOUNTER → 2021-08-02 11:20 | Outpatient (CLI) | payer OTHER, SELFPAY | PROVIDERS: Visit Provider Physician Assistant | DX: N89.8 Other specified noninflammatory disorders of vagina (principal); N39.0 Urinary tract infection, site not specified | CPT/HCPCS: 87086; 87210 ==

== ENCOUNTER → 2021-08-18 09:09 | Outpatient (CLI) | payer OTHER, SELFPAY ==
--- NOTE | 2021-08-18 09:13 | CT_ITS ---
FINAL REPORT CLINICAL HISTORY: renal protocol, right sided abdominal pain and flank pain COMPARISON: 01/18/2021 FINDINGS: Axial CT images of the abdomen and pelvis were obtained without intravenous contrast. Coronal reformatted images were also obtained.This study was performed with techniques to keep radiation doses as low as reasonably achievable (ALARA). Individualized dose reduction techniques using automated exposure control or adjustment of mA and/or kV according to the patient's size were employed. Abdomen: The lung bases are clear. There is a stable 3 mm nonobstructing mid left renal stone. There is no hydronephrosis. The patient is status post cholecystectomy. The liver, spleen and pancreas have an unremarkable, unenhanced appearance. No mass or adenopathy is seen. No inflammatory process is identified. Pelvis: Images of the pelvis reveal no evidence of ureteral dilation or ureteral stone. The appendix is normal.No mass or abnormal fluid collection is identified. IMPRESSION: Stable small nonobstructing left renal stone. No acute intra-abdominal process. Reviewed, Interpreted and Dictated by Ethan Robert III, MD Transcribed by Mary Lou Carrasco Authenticated by Ethan Robert III, MD on 08/18/2021 09:54:[address] [facility]
== END ==
PROVIDERS: PCP Physician Assistant; Visit Provider Physician Assistant
DX: R10.9 Unspecified abdominal pain (principal); R31.9 Hematuria, unspecified
CPT/HCPCS: 74176

== ENCOUNTER 2021-08-27 07:58 | Emergency (ER) | payer OTHER, SELFPAY ==
[2021-08-27] VITALS (11 sets, daily range): BP systolic 115–135; BP diastolic 62–91; PULSE 60–87; RESP 14–18; TEMP 36.6–36.8; O2SAT 98–100; BMI 32.1
--- NOTE | 2021-08-27 07:55 | ECG_ITS ---
APPROVED REPORT Exam: Resting ECG HR:77 bpm ECG Measurements Heart Rate 77 AXES DC 152 P 47 QRSd 83 QRS 87 QT 369 T 24 QTc 401 Conclusion SINUS RHYTHM NORMAL ECG UNCONFIRMED REPORT Electronically signed by : Jose Al MD 08/27/2021 18:39:34
--- NOTE | 2021-08-27 08:13 | XR_ITS ---
PROCEDURE INFORMATION: Exam: XR Chest Exam date and time: 08/27/2021 8:13 AM Age: 41 years old Clinical indication: Shortness of breath and other: Pain; Additional info: Pain and SOB TECHNIQUE: Imaging protocol: XR of the chest. Views: 1 view. COMPARISON: CT ABDOMEN PELVIS WO CON 01/18/2021 7:28 AM FINDINGS: Lungs: Unremarkable. No consolidation. Pleural spaces: Unremarkable. No pleural effusion. No pneumothorax. Heart/Mediastinum: Unremarkable. No cardiomegaly. Bones/joints: Unremarkable. IMPRESSION: No acute findings.
--- NOTE | 2021-08-27 08:19 | HMH.EDCP ---
ED Disposition Clinical Impression: Atypical chest pain Disposition: Home, Self-Care Condition on Discharge: Good Instructions: DI for Atypical Chest Pain Referrals: Evelny Huerta PA [Primary Care Provider] - Al Durham MD [Staff Physician] - - Critical Care Critical Care Time: No Attestation: On 08/27/21, the high probability of a clinically significant, sudden or life threatening deterioration of the following system(s) required my full and direct attention, intervention and personal management. The time I documented below is in addition to time spent performing reported procedures but includes the following listed in this critical care notation. Medical Decision Making - Medical Records Medical records reviewed: Yes: I reviewed the patient's medical records. - Leoncio Inquiry Pt receiving controlled substance: No Vital Signs: 08/27/21 07:59 08/27/21 08:30 08/27/21 09:01 Temperature 98.3 F Temperature Source Oral Pulse Rate 87 86 Pulse Rate [Radial] 84 Respiratory Rate 16 16 18 Blood Pressure 135/91 H 116/69 Blood Pressure [Right Arm] 128/84 Blood Pressure Mean 101 90 Blood Pressure Mean [Right Arm] 98 Blood Pressure Position [Right Arm] Sitting 02 Sat by Pulse Oximetry 98 99 99 Oxygen Delivery Method Room Air 08/27/21 09:15 08/27/21 09:30 08/27/21 10:01 Temperature Temperature Source Pulse Rate 65 60 70 Pulse Rate [Radial] Respiratory Rate 16 14 15 Blood Pressure 116/69 135/79 126/67 Blood Pressure [Right Arm] Blood Pressure Mean Blood Pressure Mean [Right Arm] Blood Pressure Position [Right Arm] 02 Sat by Pulse Oximetry 99 100 100 Oxygen Delivery Method Room Air Room Air 08/27/21 10:30 08/27/21 11:00 08/27/21 11:30 Temperature Temperature Source Pulse Rate 71 65 61 Pulse Rate [Radial] Respiratory Rate 16 14 18 Blood Pressure 119/71 131/73 121/76 Blood Pressure [Right Arm] Blood Pressure Mean 102 93 Blood Pressure Mean [Right Arm] Blood Pressure Position [Right Arm] 02 Sat by Pulse Oximetry 100 99 100 Oxygen Delivery Method Room Air - Lab Data Lab Results 08/27/21 08:00: WBC 8.6, RBC 4.88, Hgb 14.9, Hct 45.1, MCV 92.5, MCH 30.6, MCHC 33.1, RDW 12.8, Plt Count 274, MPV 8.1, Neut % (Auto) 62.3, Lymph % (Auto) 28.6, [place] % (Auto) 6.1, Eos % (Auto) 2.4, Baso % (Auto) 0.5, Neut # (Auto) 5.4, Lymph # (Auto) 2.5, [place] # (Auto) 0.5, Eos # (Auto) 0.2, Baso # (Auto) 0.1 08/27/21 08:00: Sodium 134 L, Potassium 3.7, Chloride 103, Carbon Dioxide 24, Anion Gap 10.7, BUN 13, Creatinine 1.00, Estimated Creat Clear 108, Estimated GFR 61, Est GFR ( Amer) 74, Glucose 103 H, Calcium 8.4, Total Bilirubin 1.3, AST 40 H, ALT 30, Alkaline Phosphatase 58, Troponin I < 0.01, Total Protein 7.8, Albumin 4.4, Globulin 3.4 H, Albumin/Globulin Ratio 1.3, Lipase 156 08/27/21 08:00: Serum HCG, Qual Negative 08/27/21 10:50: Troponin I < 0.01 Result diagrams: 08/27/21 08:00 08/27/21 08:00 Orders (Tests/Meds): ED MEDICATIONS Generic Name Dose Route Start Last Admin Trade Name Freq PRN Reason Stop Dose Admin Sodium Chloride 8 ml 08/27/21 08:15 Sodium Chloride 0.9% 10ml Vial IV 09/26/21 08:14 NEEDED PRN dilute pepcid Discontinued Medications Generic Name Dose Route Start Last Admin Trade Name Freq PRN Reason Stop Dose Admin Famotidine 20 mg 08/27/21 08:15 08/27/21 08:32 Famotidine 20mg/2ml Vial IV 08/27/21 08:16 20 mg ONCE ONE Administration Ondansetron HCl 4 mg 08/27/21 08:15 08/27/21 08:32 Ondansetron 4mg/2ml Vial IV 08/27/21 08:16 4 mg ONCE ONE Administration ORDERS Category Date Time Status Troponin I Q3H Lab 08/27/21 14:15 Ordered - Radiology Data #1 Image(s): Chest Image Reviewed: Yes I reviewed the patient's radiology results, Yes I reviewed the patient's radiology image, Yes I have reviewed radiologist's interpretation Preliminary Findings: No
[2021-08-27 08:25] LABS: Basophils # 0.1 K/mm3 (0-0.2); Basophils % 0.5 % (0.1-2.0); Eosinophils # 0.2 K/mm3 (0.0-0.4); Eosinophils % 2.4 % (0.1-12.0); Hematocrit 45.1 % (37.0-47.0); Hemoglobin 14.9 g/dL (12.2-16.2); Lymphocytes # 2.5 K/mm3 (0.7-4.5); Lymphocytes % 28.6 % (10-50); Mean Corpuscular HGB Conc 33.1 g/dL (31.8-35.4); Mean Corpuscular Hemoglobin 30.6 pg (27.0-31.2); Mean Corpuscular Volume 92.5 fl (81-99); Mean Platelet Volume 8.1 fl (7.4-10.4); Monocytes # 0.5 K/mm3 (0.1-1.0); Monocytes % 6.1 % (1.7-9.3); Neutrophils # 5.4 K/mm3 (1.8-7.8); Neutrophils % 62.3 % (37.0-80.0); Platelet Count 274 K/mm3 (142-424); Red Blood Count 4.88 M/mm3 (4.20-5.40); Red Cell Distribution Width 12.8 % (11.5-17.5); White Blood Count 8.6 K/mm3 (4.8-10.8)
[2021-08-27 08:26] LABS: Chloride 103 mmol/L (98-107); Potassium 3.7 mmoL/L (3.5-5.1); Sodium 134 mmol/L (136-145)
--- NOTE | 2021-08-27 08:26 | PC.NURSE ---
rad here for portable cxr
[2021-08-27 08:28] LABS: Alanine Aminotransferase 30 U/L (12-78); Alkaline Phosphatase 58 U/L (38-126); Aspartate Amino Transferase 40 U/L (14-36); Bilirubin,Total 1.3 mg/dl (0.2-1.3); Blood Urea Nitrogen 13 mg/dl (7-17); Creatinine Clearance Estimated 108 mL/min (50-200); Estimated Glomerular Filt Rate 61 ml/min (>60); GFR (African American) 74 ML/MIN (>60)
[2021-08-27 08:29] LABS: Albumin Level 4.4 g/dl (3.5-5.0); Albumin/Globulin Ratio 1.3 (1.1-1.8); Anion Gap 10.7 mEq/L (5-15); Calcium 8.4 mg/dl (8.4-10.2); Carbon Dioxide 24 mmol/L (22.0-30.0); Globulin 3.4 g/dL (1.3-3.2); Glucose 103 mg/dl (74-100); Lipase 156 U/L (23-300); Total Protein,Serum 7.8 g/dl (6.3-8.2)
[2021-08-27 08:30] LABS: HCG Qualitative, Serum Negative (Negative)
[2021-08-27 08:47] LABS: Troponin I < 0.01 ng/ml (0.00-0.034)
--- NOTE | 2021-08-27 09:55 | PC.NURSE ---
UPDATED ON PLAN OF CARE
--- NOTE | 2021-08-27 10:10 | PC.NURSE ---
pt up to the bathroom.
--- NOTE | 2021-08-27 10:13 | PC.NURSE ---
pt back in bed and hooked back up to vital signs and cardiac monitoring.
--- NOTE | 2021-08-27 10:29 | PC.NURSE ---
PT RESTING OFFERS NO C/O AT PRESENT
[2021-08-27 11:32] LABS: Troponin I < 0.01 ng/ml (0.00-0.034)
--- NOTE | 2021-08-27 12:18 | PC.NURSE ---
pt back from radiology
== END 2021-08-27 14:50 | disposition home or self-care (01) ==
PROVIDERS: Emergency Provider Emergency Medicine; PCP Physician Assistant
DX: R07.89 Other chest pain (principal); R10.13 Epigastric pain; K21.9 Gastro-esophageal reflux disease without esophagitis; I25.2 Old myocardial infarction
CPT/HCPCS: 71045; 80053; 83690; 84484; 84703; 85025; 93005; 96374; 96375; 99283; 99284; J2405

== ENCOUNTER → 2021-09-06 14:19 | Outpatient (CLI) | payer OTHER, SELFPAY | PROVIDERS: Visit Provider Physician Assistant | DX: R39.9 Unspecified symptoms and signs involving the genitourinary system (principal) | CPT/HCPCS: 87086; 87210 ==

== ENCOUNTER → 2021-09-29 14:19 | Outpatient (CLI) | payer OTHER, SELFPAY | PROVIDERS: Visit Provider Physician Assistant | DX: N76.0 Acute vaginitis (principal); B96.89 Other specified bacterial agents as the cause of diseases classified elsewhere | CPT/HCPCS: 87210 ==

== ENCOUNTER → 2021-11-18 10:35 | Outpatient (CLI) | payer OTHER, SELFPAY | PROVIDERS: Visit Provider Physician Assistant | DX: N89.8 Other specified noninflammatory disorders of vagina (principal) | CPT/HCPCS: 87210 ==

== ENCOUNTER → 2021-12-08 11:11 | Outpatient (CLI) | payer OTHER, SELFPAY | PROVIDERS: PCP Physician Assistant; Visit Provider Physician Assistant | DX: N89.5 Stricture and atresia of vagina (principal); N89.8 Other specified noninflammatory disorders of vagina | CPT/HCPCS: 87210 ==

== ENCOUNTER → 2021-12-19 16:33 | Outpatient (CLI) | payer OTHER, SELFPAY ==
[2021-12-19 13:58] LABS: Basophils # 0.1 K/mm3 (0-0.2); Basophils % 0.7 % (0.1-2.0); Eosinophils # 0.2 K/mm3 (0.0-0.4); Eosinophils % 1.7 % (0.1-12.0); Hematocrit 46.6 % (37.0-47.0); Hemoglobin 15.4 g/dL (12.2-16.2); Lymphocytes # 2.2 K/mm3 (0.7-4.5); Mean Corpuscular HGB Conc 33.1 g/dL (31.8-35.4); Mean Corpuscular Hemoglobin 31.5 pg (27.0-31.2); Mean Corpuscular Volume 95.3 fl (81-99); Monocytes # 0.7 K/mm3 (0.1-1.0); Monocytes % 6.8 % (1.7-9.3); Neutrophils # 6.7 K/mm3 (1.8-7.8); Neutrophils % 68.8 % (37.0-80.0); Platelet Count 311 K/mm3 (142-424); Red Blood Count 4.89 M/mm3 (4.20-5.40); Red Cell Distribution Width 13.4 % (11.5-17.5); White Blood Count 9.8 K/mm3 (4.8-10.8)
[2021-12-19 14:21] LABS: Alanine Aminotransferase 30 U/L (12-78); Albumin/Globulin Ratio 1.3 (1.1-1.8); Alkaline Phosphatase 50 U/L (38-126); Anion Gap 11.7 mEq/L (5-15); Aspartate Amino Transferase 32 U/L (14-36); Bilirubin,Total 1.4 mg/dl (0.2-1.3); Blood Urea Nitrogen 15 mg/dl (7-17); Carbon Dioxide 26 mmol/L (22.0-30.0); Chloride 104 mmol/L (98-107); Chol/HDL Ratio 3.8 (1-3.5); Cholesterol 203 mg/dl (140-200); Estimated Glomerular Filt Rate 61 ml/min (>60); GFR (African American) 74 ML/MIN (>60); Glucose 91 mg/dl (74-100); HDL Cholesterol 54 mg/dl (40-60); Potassium 3.7 mmoL/L (3.5-5.1); Sodium 138 mmol/L (136-145); Triglycerides 124 mg/dl (30-150); VLDL Cholesterol 25 mg/dL (0-40)
[2021-12-19 14:32] LABS: Direct LDL Cholesterol 104.18 mg/dL (100-129)
[2021-12-19 14:36] LABS: T4 (Thyroxine) 10.3 ug/dl (5.53-11.0)
[2021-12-19 14:37] LABS: 25-OH Vitamin D, Total 24.6 ng/mL (30-100)
[2021-12-19 14:50] LABS: Thyroid Stimulating Hormone 6.21 uIU/mL (0.465-4.68)
[2021-12-19 15:00] LABS: Hemoglobin A1C 5.6 % (4.0-6.0)
== END ==
PROVIDERS: Visit Provider Physician Assistant
DX: E03.9 Hypothyroidism, unspecified (principal); E55.9 Vitamin D deficiency, unspecified; E78.5 Hyperlipidemia, unspecified
CPT/HCPCS: 80053; 80061; 82306; 83036; 84436; 84443; 85025

== ENCOUNTER → 2022-02-27 13:22 | Outpatient (CLI) | payer OTHER, SELFPAY | PROVIDERS: PCP Physician Assistant; Visit Provider Physician Assistant | DX: N89.8 Other specified noninflammatory disorders of vagina (principal) | CPT/HCPCS: 87210 ==

== ENCOUNTER → 2022-03-01 06:21 | Outpatient (CLI) | payer OTHER, SELFPAY | PROVIDERS: PCP Physician Assistant; Visit Provider Physician Assistant | DX: N76.0 Acute vaginitis (principal); B96.1 Klebsiella pneumoniae [K. pneumoniae] as the cause of diseases classified elsewhere; B96.4 Proteus (mirabilis) (morganii) as the cause of diseases classified elsewhere | CPT/HCPCS: 87070; 87077; 87186; 87205 ==

== ENCOUNTER → 2022-03-31 12:06 | Outpatient (CLI) | payer OTHER, SELFPAY | PROVIDERS: PCP Physician Assistant; Visit Provider Physician Assistant | DX: N89.8 Other specified noninflammatory disorders of vagina (principal) | CPT/HCPCS: 87210 ==

== ENCOUNTER → 2022-04-03 14:26 | Outpatient (CLI) | payer OTHER, SELFPAY | PROVIDERS: PCP Physician Assistant; Visit Provider Physician Assistant | DX: N39.0 Urinary tract infection, site not specified (principal) | CPT/HCPCS: 87086 ==

== ENCOUNTER → 2022-04-25 08:00 | Outpatient (POV) | payer OTHER, SELFPAY | PROVIDERS: Visit Provider Dermatology | DX: Z00.00 Encounter for general adult medical examination without abnormal findings (principal) ==

== ENCOUNTER → 2022-05-23 08:01 | Outpatient (POV) | payer OTHER, SELFPAY | PROVIDERS: Visit Provider Dermatology | DX: Z00.00 Encounter for general adult medical examination without abnormal findings (principal) ==

== ENCOUNTER → 2022-06-02 14:44 | Outpatient (CLI) | payer OTHER, SELFPAY | PROVIDERS: PCP Emergency Medicine; Visit Provider Emergency Medicine | DX: N89.8 Other specified noninflammatory disorders of vagina (principal) | CPT/HCPCS: 87210 ==

== ENCOUNTER → 2022-06-08 16:44 | Outpatient (CLI) | payer OTHER, SELFPAY ==
--- NOTE | 2022-06-08 16:45 | MM_ITS ---
PROCEDURE INFORMATION: Exam: MG Bilateral Screening 3D Mammography Exam date and time: 06/08/2022 4:36 PM Age: 41 years old Clinical indication: Screening mammogram. TECHNIQUE: Imaging protocol: Bilateral Screening tomosynthesis and 2D mammography including computer-aided detection (CAD) when performed. COMPARISON: 1. MG MM DIG SCREENING MAMM BI W/CAD 05/19/2021 4:20 PM 2. MG MM DIG SCREENING MAMM BI W/CAD 04/13/2020 4:47 PM FINDINGS: MAMMOGRAPHY: Breast composition: There are scattered areas of fibroglandular density. Mass: Stable benign-appearing subcentimeter nodules are present in the left breast. No new or morphologically suspicious nodule has developed to suggest malignancy. Architectural distortion: No new or suspicious architectural distortion. Calcifications: No new or suspicious calcifications are present Asymmetric density: No new or suspicious asymmetric density is present Skin thickening: None. Axillary adenopathy: None. IMPRESSION: No mammographic evidence of malignancy. Recommend annual screening mammography unless otherwise clinically indicated. ASSESSMENT: BI-RADS category 2: Benign
== END ==
PROVIDERS: PCP Physician Assistant; Visit Provider Physician Assistant
DX: Z12.31 Encounter for screening mammogram for malignant neoplasm of breast (principal)
CPT/HCPCS: 77063; 77067

== ENCOUNTER → 2022-10-24 16:07 | Outpatient (POV) | payer OTHER, SELFPAY | PROVIDERS: Visit Provider Dermatology | DX: Z00.00 Encounter for general adult medical examination without abnormal findings (principal) ==

== ENCOUNTER 2023-07-24 16:56 | Outpatient (CLI) | payer OTHER, SELFPAY ==
--- NOTE | 2023-07-24 16:56 | MM_ITS ---
PROCEDURE INFORMATION: Exam: MG Bilateral Screening 3D Mammography Exam date and time: 07/24/2023 4:43 PM Age: 43 years old Clinical indication: Screening examination TECHNIQUE: Imaging protocol: Bilateral Screening tomosynthesis and 2D mammography including computer-aided detection (CAD) when performed. COMPARISON: 1. MG MM DIG SCREENING MAMM BI W/CAD 06/08/2022 4:36 PM 2. MG MM DIG SCREENING MAMM BI W/CAD 05/19/2021 4:20 PM FINDINGS: MAMMOGRAPHY: Breast composition: There are scattered areas of fibroglandular density. Mass: None. Architectural distortion: None. Calcifications: No suspicious calcifications. Asymmetric density: None. Skin thickening: None. Axillary adenopathy: None. IMPRESSION: No mammographic evidence of malignancy. Annual screening is recommended unless otherwise clinically indicated. ASSESSMENT: BI-RADS Category 1: Negative
== END 2023-07-24 23:59 ==
LOC: RAD 16:56
PROVIDERS: PCP Physician Assistant; Visit Provider Physician Assistant
DX: Z12.31 Encounter for screening mammogram for malignant neoplasm of breast (principal)
CPT/HCPCS: 77063; 77067

== ENCOUNTER 2023-08-02 12:43 | Outpatient (CLI) | payer OTHER, SELFPAY | END 2023-08-02 23:59 | LOC: LAB.DROPOF 12:44 | PROVIDERS: PCP Obstetrics & Gynecology; Visit Provider Obstetrics & Gynecology | DX: N76.1 Subacute and chronic vaginitis (principal) | CPT/HCPCS: 87210 ==

== ENCOUNTER 2024-02-27 07:33 | Outpatient (CLI) | payer OTHER, SELFPAY ==
[2024-02-27 07:51] LABS: Basophils # 0.1 K/mm3 (0-0.2); Basophils % 1.2 % (0.1-2.0); Eosinophils # 0.3 K/mm3 (0.0-0.4); Eosinophils % 2.9 % (0.1-12.0); Hematocrit 45.6 % (37.0-47.0); Hemoglobin 14.9 g/dL (12.2-16.2); Lymphocytes # 1.8 K/mm3 (0.7-4.5); Lymphocytes % 20.6 % (10-50); Mean Corpuscular HGB Conc 32.7 g/dL (31.8-35.4); Mean Corpuscular Hemoglobin 31.7 pg (27.0-31.2); Mean Corpuscular Volume 96.7 fl (81-99); Mean Platelet Volume 8.3 fl (7.4-10.4); Monocytes # 0.4 K/mm3 (0.1-1.0); Monocytes % 4.8 % (1.7-9.3); Neutrophils # 6.2 K/mm3 (1.8-7.8); Neutrophils % 70.5 % (37.0-80.0); Platelet Count 243 K/mm3 (142-424); Red Blood Count 4.71 M/mm3 (4.20-5.40); Red Cell Distribution Width 13.5 % (11.5-17.5); White Blood Count 8.9 K/mm3 (4.8-10.8)
[2024-02-27 08:37] LABS: Albumin Level 4.1 g/dl (3.5-5.0); Chloride 108 mmol/L (98-107); Sodium 139 mmol/L (136-145)
[2024-02-27 08:38] LABS: Potassium 3.9 mmoL/L (3.5-5.1)
[2024-02-27 08:40] LABS: Alanine Aminotransferase 28 U/L (12-78); Anion Gap 8.9 mEq/L (5-15); Aspartate Amino Transferase 31 U/L (14-36); Blood Urea Nitrogen 14 mg/dl (7-17); Carbon Dioxide 26 mmol/L (22.0-30.0); Estimated Glomerular Filt Rate 68 ml/min (>60); GFR (African American) 82 ML/MIN (>60)
[2024-02-27 08:41] LABS: Albumin/Globulin Ratio 1.4 (1.1-1.8); Alkaline Phosphatase 45 U/L (38-126); Bilirubin,Total 1.5 mg/dl (0.2-1.3); Calcium 8.9 mg/dl (8.4-10.2); Chol/HDL Ratio 3.4 (1-3.5); Cholesterol 216 mg/dl (140-200); Globulin 2.9 g/dL (1.3-3.2); Glucose 106 mg/dl (74-100); HDL Cholesterol 63 mg/dl (40-60); Triglycerides 144 mg/dl (30-150); VLDL Cholesterol 29 mg/dL (0-40)
[2024-02-27 08:52] LABS: Direct LDL Cholesterol 109.95 mg/dL (100-129)
[2024-02-27 15:04] LABS: 25-OH Vitamin D, Total 27.3 ng/mL (30-100)
[2024-02-28 12:12] LABS: Hemoglobin A1C 5.4 % (4.0-6.0)
== END 2024-02-27 23:59 | disposition home or self-care (01) ==
LOC: LAB 07:34
PROVIDERS: PCP Physician Assistant; Visit Provider Physician Assistant
DX: E03.9 Hypothyroidism, unspecified (principal); E55.9 Vitamin D deficiency, unspecified; E78.2 Mixed hyperlipidemia; R73.03 Prediabetes
CPT/HCPCS: 36415; 80050; 80053; 80061; 82306; 83036; 84443; 85025

== ENCOUNTER 2024-03-24 16:43 | Outpatient (CLI) | payer OTHER, SELFPAY ==
[2024-03-24 17:45] LABS: Bilirubin,Direct 0.1 mg/dl (0.0-0.4)
== END 2024-03-24 23:59 | disposition home or self-care (01) ==
LOC: LAB 16:44
PROVIDERS: PCP Physician Assistant; Visit Provider Physician Assistant
DX: E78.2 Mixed hyperlipidemia (principal)
CPT/HCPCS: 36415; 82248

== ENCOUNTER 2024-04-14 13:49 | Outpatient (CLI) | payer OTHER, SELFPAY ==
--- NOTE | 2024-04-14 13:49 | CT_ITS ---
FINAL REPORT TECHNIQUE: Axial images through the abdomen and pelvis were performed without contrast.This study was performed with techniques to keep radiation doses as low as reasonably achievable, (ALARA). Individualized dose reduction techniques using automated exposure control or adjustment of mA and/or kV according to the patient's size were employed. CLINICAL HISTORY: abd pain, LLQ pain COMPARISON: 08/18/2021 FINDINGS: ABDOMEN: The lung bases are clear. The heart size is normal. Limited images of the liver are unremarkable. Gallbladder is absent. The spleen is normal. No adrenal mass is identified. The aorta is normal in caliber. There is no significant free fluid or adenopathy. There is a small nonobstructing stone in the lower pole of the left kidney. There is no hydronephrosis. PELVIS: The appendix is normal. The urinary bladder is unremarkable. Uterus is anteverted. Esher coils are noted bilaterally. There is no significant free fluid or adenopathy. IMPRESSION: Small, nonobstructing left renal stone. Reviewed, Interpreted and Dictated by Brendan Stevenson MD Transcribed by Peggy Brenner Authenticated and [facility]
== END 2024-04-14 23:59 | disposition home or self-care (01) ==
LOC: RAD 13:49
PROVIDERS: PCP Student in an Organized Health Care Education/Training Program; Visit Provider Student in an Organized Health Care Education/Training Program
DX: R10.32 Left lower quadrant pain (principal)
CPT/HCPCS: 74176

== ENCOUNTER 2024-05-19 08:00 | Emergency (ER) | payer OTHER, SELFPAY ==
[2024-05-19 08:10] VITALS: BP 135/83; PULSE 73; RESP 18; TEMP 36.8; O2SAT 99; BMI 31.3
--- NOTE | 2024-05-19 08:19 | EXP.UTC ---
Discharge Plan Disposition Patient Disposition: Home, Self-Care Condition: Good Prescriptions Prescriptions: New lidocaine 5 % adhesive patch,medicated 1 patch topical DAILY PRN (Reason: pain) Qty: 15 0RF Rx Instructions: leave on most painful area for up to 12 hrs then remove for 12 hours methylprednisolone [Medrol (Pancho)] 4 mg tablets,dose pack See Rx Instructions .Route .COMPLEX 6 Days Qty: 21 0RF Rx Instructions: taper pack; No Action aspirin [Adult Low Dose Aspirin] 81 mg tablet,delayed release (DR/EC) 81 mg PO DAILY levothyroxine [Synthroid] 175 mcg tablet 175 mcg PO DAILY Qty: 90 1RF ergocalciferol (vitamin D2) 1,250 mcg (50,000 unit) capsule 50,000 unit PO QWEEK 90 Days Qty: 14 3RF simvastatin 40 mg tablet See Rx Instructions .ROUTE .COMPLEX Qty: 90 0RF Dose Instruction: TAKE ONE TABLET BY MOUTH EVERY NIGHT AT BEDTIME Rx Instructions: TAKE ONE TABLET BY MOUTH EVERY NIGHT AT BEDTIME cetirizine 10 mg tablet See Rx Instructions .ROUTE .COMPLEX Qty: 90 0RF Dose Instruction: TAKE 1 TABLET BY MOUTH ONCE DAILY Rx Instructions: TAKE 1 TABLET BY MOUTH ONCE DAILY valacyclovir [Valtrex] 1 gram tablet 1,000 mg PO BID Qty: 60 2RF estradiol 0.01 % (0.1 mg/gram) cream 1 appful vaginal .twice weekly Qty: 42.5 1RF Rx Instructions: blueberry sized amount vaginally twice weekly Referrals Follow up/Referrals: Evelyn Huerta PA [Primary Care Provider] - See instructions Activity Restrictions/Add. Instructions Additional Instructions/Restrictions: *Ibuprofen teresa 6 hours with meal as needed for pain/inflammation *Remember you had a Toradol shot in the clinic today, which is similar to Motrin so do not take any for the next 8-10 hours *Not additional anti-inflammatory like motrin, aleve, advil with the above amount of ibuprofen. You can still take Tylenol every 4 hours as needed if you need something else for pain *Ice 20 minutes every 2 hours for the first 48 hours after the initial injury followed by moist heat every 20 minutes 3-4 times a day to affected area *Muscle relaxer as you was prescribed as needed for muscle spasms but remember, it WILL cause drowsiness You cannot take it and drive, operate machinery or care for small children. *Keep this area active, no movement leads to more stiffness, However take it easy and avoid heavy lifting pushing or pulling *Follow up with you family doctor if no improvement for further treatment Start oral Steriods tomorrow ? Clinical Impressions Clinical Impression: Low back pain Qualifiers: Chronicity: unspecified Back pain laterality: midline Sciatica presence: without sciatica Qualified Code(s): M54.50 - Low back pain, unspecified Instructions Patient Instructions: DI for Low Back Pain, Lidocaine Transdermal Patch, Methylprednisolone Print Language Print Language: Belarusian Discharge ED Provider: Carline Barron [facility] General Stated complaint: lower back pain Mode of Arrival: Ambulatory Source of Information: Patient Time Seen by Provider: 05/19/24 08:19 Description of Symptoms (Recalled from Triage Doc. by RN): low back pain, tight muscles HEENT Symptoms (Recalled from RN notes): No Resp Symptoms (Recalled from RN notes): No Skin Symptoms (Recalled from RN notes): No MS Symptoms (Recalled from RN notes): Yes Functional Status (Recalled from RN notes): WNL History of Present Illness Provider Complaint: Patient states that she pulled a muscle in her lower back last week getting up out of a chair, states she seen her PCP and was given Muscle relaxers but has only been able to take them at night because she works during the day and they havent helped much So today she came in hoping to get a couple shots to help Denies urinary symptoms Denies loss of control of bowel or bladder Related Data Home Medications ?Medication ?Instructions ?Recorded ?Confirmed aspirin 81 mg tablet,delayed 81 mg PO DAILY 04/18/19 04/24/24 release (Adult Low Dose Aspirin) Previous Rx's ?Medication ?Instructions ?Recorded simvastatin 40 mg tablet See Rx Instructions .Route 12/11/22 .COMPLEX #90 tabs cetirizine 10 mg tablet See Rx Instructions .Route 05/22/23 .COMPLEX #90 tabs valacyclovir 1 gram tablet 1,000 mg PO BID #60 tabs 01/15/24 (Valtrex) estradiol 0.01% (0.1 mg/gram) 1 appful vaginal .twice weekly 02/21/24 vaginal cream #42.5 grams ergocalciferol (vitamin D2) 1,250 50,000 unit PO QWEEK 90 days #14 03/07/24 mcg (50,000 unit) capsule caps levothyroxine 175 mcg tablet 175 mcg PO DAILY #90 tabs 03/07/24 (Synthroid) lidocaine 5 % topical patch 1 patch topical DAILY PRN pain #15 05/19/24 ea methylprednisolone 4 mg tablets in See Rx Instructions .Route 05/19/24 a dose pack (Medrol (Pancho)) .COMPLEX 6 days #21 tabs Allergies Allergy/AdvReac Type Severity Reaction Status Date / Time Penicillins (PENICILLINS) Allergy Unknown Verified 04/24/24 16:05 Sulfa (Sulfonamide Allergy Unknown Verified 04/24/24 16:05 Antibiotics) (SULFA (SULFONAMIDE ANTIBIOTICS)) Worker's Comp Is this a Worker's Comp case?: No [facility] Disclaimer: The information contained in this section may have been updated after the patient was seen, as this information can be updated by other users. Medical History Vulvovaginitis Urethral pain Hemorrhoids DEVORA (stress urinary incontinence, female) Chronic vaginitis Old myocardial infarction Hyperlipidemia (~06/13/18) Vitamin D deficiency (~06/13/18) Surgical History Hx of wisdom tooth extraction Hx of cholecystectomy Hx of section 2011 Family History Other Diabetes Heart attack Hyperlipidemia Hypertension Thyroid disorder Social History Smoking Status: Former smoker alcohol intake: never substance use type: denies use current occupational status: employed Travel in the last 8 weeks: Inside the [place] ROS Obtained: Yes All systems reviewed & no additional complaints except as documented and Yes Systems reviewed as appropriate & no additional complaints except as documented Constitutional Constitutional: Reports system reviewed and no additional complaints, except as documented and Reports as per HPI ENT Ears, Nose, Mouth, and Throat: Reports system reviewed and no additional complaints, except as documented and Reports as per HPI Cardiovascular Cardiovascular: Reports system reviewed and no additional complaints, except as documented and Reports as per HPI Respiratory Respiratory: Reports system reviewed and no additional complaints, except as documented and Reports as per HPI Gastrointestinal Gastrointestingal: Reports system reviewed and no additional complaints, except as documented and as per HPI; Denies abdominal pain Genitourinary Female Genitourinary: Reports system reviewed and no additional complaints, except as documented, Reports as per HPI, Denies dysuria, Denies urinary frequency and Denies urinary urgency Musculoskeletal Musculoskeletal: Reports system reviewed and no additional complaints, except as documented, Reports as per HPI and Reports back pain (muscle spasm like pain in lower back worse with movement) Physical Exam General General appearance: alert and in no apparent distress ENT ENT exam: Present mucous membranes moist Neck Neck exam: Present normal inspection, full ROM and trachea midline Chest Chest inspection: Present normal inspection and symmetric chest wall rise Respiratory Respiratory exam: Present normal lung sounds bilaterally; Absent respiratory distress or wheezes Cardiovascular Cardiovascular exam: Present regular rate, normal rhythm and normal heart sounds Abdominal Exam Abdominal exam: Present soft and normal bowel sounds; Absent distention or tenderness Back Exam Back exam: Present tenderness and muscle spasm Back 1 view image: 1. reports muscle spasm like pain, worse with movement, denies radiation of pain, denies urinary symptoms, pain worse with movement Denies loss of control of bowel or bladder Neurological Exam Neurological exam: Present alert, oriented X3 and normal gait Medical Decision Making Medical Records Screening: Per USPSTF and CDC recommendations, given the prevalence of disease in our region, it is our hospital?s policy to screen for HIV and viral Hepatitis for all patients aged 18 and over and those with ongoing risk factors. Leoncio Inquiry Pt receiving controlled substance: No Leoncio was queried for this patient: No Vital Signs: 05/19/24 08:10 Temperature 98.2 F Temperature Source Oral Pulse Rate [Left Radial] 73 Respiratory Rate 18 Blood Pressure [Left Arm] 135/83 Blood Pressure Mean [Left Arm] 100 02 Sat by Pulse Oximetry 99
[2024-05-19] MEDS: KETOROLAC 60MG/2ML VIAL 60 MG IM (08:33)
[2024-05-19] MEDS: METHYLPREDNISOLONE SOD SUCC 125MG VIAL 125 MG IM (08:33)
[2024-05-19 08:45] VITALS: BP 135/83; PULSE 73; RESP 18; TEMP 36.8
== END 2024-05-19 08:47 | disposition home or self-care (01) ==
PROVIDERS: Emergency Provider Nurse Practitioner; PCP Physician Assistant
DX: M54.50 Low back pain, unspecified (principal)
CPT/HCPCS: 96372; 99213; G0381; J1885; J2919

== ENCOUNTER 2024-07-24 05:56 | Day surgery (SDC) | payer OTHER, SELFPAY ==
[2024-07-21 14:51] VITALS: BMI 31.3
[2024-07-24] MEDS: LACTATED RINGERS 1000ML 1,000 ML 50 ML IV (06:17)
[2024-07-24 06:18] VITALS: BP 136/81; PULSE 92; RESP 18; TEMP 36.9; O2SAT 99
[2024-07-24 06:49] LABS: Urine Pregnancy, HCG Qual. Negative (Negative)
--- NOTE | 2024-07-24 07:31 | EXP.HP ---
History of Present Illness *Admission Date: 07/24/24 *Reason for visit:: Bright red rectal bleeding *History of present illness: Mrs. Dejesus is a 44-year-old female who is here for diagnostic colonoscopy secondary to rectal bleeding with fissures and hemorrhoidal bleeding. The examination is deemed medically necessary for colonoscopy. The patient has been seen, interviewed and examined prior to the procedure by both myself and the anesthesia provider. [facility] Disclaimer: The information contained in this section may have been updated after the patient was seen, as this information can be updated by other users. Medical History Vulvovaginitis Urethral pain Hemorrhoids DEVORA (stress urinary incontinence, female) Chronic vaginitis Old myocardial infarction Hyperlipidemia (~06/13/18) Vitamin D deficiency (~06/13/18) Surgical History Hx of wisdom tooth extraction Hx of cholecystectomy Hx of section 2011 Family History Other Diabetes Heart attack Hyperlipidemia Hypertension Thyroid disorder Social History Smoking Status: Former smoker alcohol intake: never substance use type: denies use current occupational status: employed Travel in the last 8 weeks: Inside the [place] Have you lived/traveled outside US in past 30 days?: No Contact w/someone who lives/traveled outside US past 30 days?: No Exposure to someone with infectious disease in past 14 days?: No Do you have a fever (greater than 100.4 F or 38 C)?: No Have you tested positive for COVID-19: No Exposed to someone with COVID-19 in past 14 days?: No Do you have a sore throat?: No Do you have a cough?: No Do you have any weakness?: No Do you have any diarrhea?: No Are you experiencing any unusual bleeding?: No Do you have any muscle aches/pain?: No Do you have any abdominal pain?: No Are you experiencing loss of taste or smell?: No Other Medical History Have you received the Flu Vaccine for this season: Yes Have you received the Pneumonia Vaccine: No Review of Systems Review of Systems Review of systems (narrative): Negative *Cardiovascular Comments: Negative *Gastrointestinal Comments: Negative *Genitourinary Comments: Negative *Musculoskeletal Comments: Negative *Neurologic Comments: Negative Meds Home Medications and Allergies Home Medications ?Medication ?Instructions ?Recorded ?Confirmed ?Type aspirin 81 mg tablet,delayed 81 mg PO DAILY 04/18/19 07/21/24 History release (Adult Low Dose Aspirin) simvastatin 40 mg tablet See Rx Instructions .Route 12/11/22 07/21/24 Rx .COMPLEX #90 tabs cetirizine 10 mg tablet See Rx Instructions .Route 05/22/23 07/21/24 Rx .COMPLEX #90 tabs estradiol 0.01% (0.1 mg/gram) 1 appful vaginal .twice weekly 02/21/24 07/21/24 Rx vaginal cream #42.5 grams ergocalciferol (vitamin D2) 1,250 50,000 unit PO QWEEK 90 days #14 03/07/24 07/21/24 Rx mcg (50,000 unit) capsule caps levothyroxine 175 mcg tablet 175 mcg PO DAILY #90 tabs 03/07/24 07/21/24 Rx (Synthroid) valacyclovir 1 gram tablet 1,000 mg PO BID PRN fever blisters 07/21/24 07/21/24 History (Valtrex) New Prescriptions to Start Prescriptions: Allergies Allergy/AdvReac Type Severity Reaction Status Date / Time Penicillins (PENICILLINS) Allergy Unknown Unknown Verified 07/24/24 06:18 allergy reaction Sulfa (Sulfonamide Allergy Unknown Rash Verified 07/24/24 06:18 Antibiotics) (SULFA (SULFONAMIDE ANTIBIOTICS)) Exam Data for Last 24 hours Vital signs and Labs for Last 24 Hours: Temp Pulse Resp BP Pulse Ox O2 Del Method 98.4 F 92 H 18 136/81 99 Room Air 07/24/24 06:18 07/24/24 06:18 07/24/24 06:18 07/24/24 06:18 07/24/24 06:18 07/24/24 06:18 Laboratory Results - last 24 hr 07/24/24 06:37: Urine HCG, Qual Negative I & O for Last 24 hours: Intake & Output 07/21/24 07/22/24 07/23/24 07/24/24 23:59 23:59 23:59 23:59 Weight 200 lb *Routine HEENT Exam Head: Present normocephalic Eye: Present EOMI and PERRL ENT: Present mucous membranes moist *Routine Neck Exam Neck: Present supple *Routine Respiratory Exam Respiratory: Present CTA bilaterally *Routine Cardiovascular Exam Cardiovascular: Present RRR *Routine Abdominal Exam Abdominal: Present soft and normoactive bowel sounds; Absent tenderness *Routine Rectal Exam Rectal:: deferred *Routine Genitalia Exam Genitalia:: deferred *Routine Extremities Exam Extremities: Absent cyanosis, clubbing or edema *Routine Skin Exam Skin: Present warm; Absent rash *Routine Neurological Exam Neurological: Present alert and oriented X3 Assessment and Plan *Assessment and plan (1) Screening for colon cancer: Status: Acute Category: Medical Code(s): Z12.11 - Encounter for screening for malignant neoplasm of colon (2) Rectal bleeding: Status: Acute Category: Medical Code(s): K62.5 - Hemorrhage of anus and rectum (3) Anal fissure: Status: Acute Category: Medical Code(s): K60.2 - Anal fissure, unspecified (4) Rectal pain: Status: Acute Category: Medical Code(s): K62.89 - Other specified diseases of anus and rectum Plan A/P: 1. Screening for colon cancer is the preprocedural diagnosis. The patient did have some rectal bleeding and rectal pain that was related to an anal fissure which was treated. The patient will be anesthetized/sedated using MAC sedation. The patient has been seen and examined. Cardiac and lung assessment prior to the examination is stable. Proceed with planned colonoscopy
--- NOTE | 2024-07-24 07:33 | EXP.ANES.CKL ---
[facility] Disclaimer: The information contained in this section may have been updated after the patient was seen, as this information can be updated by other users. Medical History Vulvovaginitis Urethral pain Hemorrhoids DEVORA (stress urinary incontinence, female) Chronic vaginitis Old myocardial infarction Hyperlipidemia (~06/13/18) Vitamin D deficiency (~06/13/18) Surgical History Hx of wisdom tooth extraction Hx of cholecystectomy Hx of section 2011 Family History Other Diabetes Heart attack Hyperlipidemia Hypertension Thyroid disorder Social History Smoking Status: Former smoker alcohol intake: never substance use type: denies use current occupational status: employed Travel in the last 8 weeks: Inside the [place] Have you lived/traveled outside US in past 30 days?: No Contact w/someone who lives/traveled outside [place] past 30 days?: No Exposure to someone with infectious disease in past 14 days?: No Do you have a fever (greater than 100.4 F or 38 C)?: No Have you tested positive for COVID-19: No Exposed to someone with COVID-19 in past 14 days?: No Do you have a sore throat?: No Do you have a cough?: No Do you have any weakness?: No Do you have any diarrhea?: No Are you experiencing any unusual bleeding?: No Do you have any muscle aches/pain?: No Do you have any abdominal pain?: No Are you experiencing loss of taste or smell?: No [facility] Anesthesia Checklist Patient Identification Patient Identification: Arm Band Structural Data Admitted From: Home Planned Operative Procedure/s: Colonoscopy Consent for Planned Operative Procedure(s) Verified: Yes Verified Documents: Surgical Consent and History and Physical NPO Status Verified Time NPO: 00:00 Additional verifications Anesthesia Reactions: No Airway Assessment Mallampati Score:: Class II C-Spine Mobility Assessed: Yes TMJ Mobility Assessed: Yes Dentition: Good Dentition Neurological Assessment Level of Consciousness: Awake, Alert and Appropriate Anesthesia Plan Anesthesia Risk discussed: Yes Anesthesia Plan: Verified ASA Class: II Anesthesia Type: MAC
[2024-07-24 07:34] VITALS: O2SAT 100
--- NOTE | 2024-07-24 07:37 | HMH.PROCNOTE ---
[facility] Procedure Note Date: 07/24/24 Time: 07:53 Procedure Note:: Colonoscopy Procedure Report: Colonoscopy Endoscopist: Law Fierro II, MD Referring physician: Kya Gonzalez PA-C Date of Procedure: July 24, 2024 Equipment: Olympus 190 variable stiffness pediatric colonoscope Sedation: MAC sedation Indication: Mrs. Dejesus is a 44-year-old female who is here for initial screening colonoscopy. She does have a known anal fissure which can lead to some intermittent bright red blood per rectum and some anorectal pain. This has improved with intermittent use of nitroglycerin ointment and the initiation of fiber (Benefiber). The patient reports no abdominal pain, weight loss, change in her bowel habits or family history of colon cancer. Procedure: Prior to the procedure, a history and physical exam was performed, and patient's medications and allergies were reviewed. The risks, benefits and alternatives of the sedation and procedure were discussed with the patient. All questions were answered and informed consent was obtained. The patient was brought to the procedure room. Patient identification and proposed procedure were verified by the physician and the nurse. The patient was placed in a left lateral decubitus position and the scope was passed under direct vision. Throughout the procedure, the patient's blood pressure, pulse, and oxygen saturations were monitored continuously. The colonoscopy was accomplished without difficulty. The patient tolerated the procedure well. Findings: On digital rectal examination there was normal rectal tone. There were no external hemorrhoids. There was an anterior midline anal fissure. The colonoscope was introduced through the anal canal to the rectum and advanced to the cecum. The ileocecal valve and appendiceal orifice were identified. The scope was advanced a short distance into the ileum which appeared grossly normal. The scope was then withdrawn into the colon. The cecum, ascending, transverse, descending, sigmoid and rectum were grossly normal. There were no mucosal abnormalities identified. Upon retroflexion within the rectum there were grade 1 internal hemorrhoids.The preparation was excellent throughout with [place] Preparation Score of 9. The cecal time was 10 minutes. Impression: 1. Normal colonoscopy with intubation of the terminal ileum 2. Chronic anterior midline anal fissure 3. Grade 1 internal hemorrhoids Plan: I will discuss the findings with the patient and family. She will not require surveillance colonoscopy again for 10 years by ACS guidelines. An anal fissure is a tear in the lining of the anus. The tear typically extends into the circular sphincter muscle called the internal anal sphincter. A fissure is called an acute fissure if it has been present for less than 6 weeks and a chronic anal fissure if present for longer than 6 weeks. The patient does have a chronic anal fissure. Once the fissure develops, the anal sphincter muscle typically goes into spasm. This causes further separation of the tear impairing healing and causing pain. Exposure to feces also slows healing. Treatment is certainly dependent and often based upon whether a fissure is acute or chronic (how long it has been present). Treatment is directed towards relieving the pain, reducing the spasm and allowing the fissure to heal. New or acute fissures often heal by themselves. We do recommend fiber bulk supplementation (i.e. Metamucil/psyllium powder or Benefiber) which will help to prevent hard bowel movements. Topical nitroglycerin using a small pea-sized dot of ointment can provide relief by increasing blood flow to the injured tissue and reducing pressure and spasm in the internal anal sphincter which improves pain and facilitates healing. Botox (botulinum toxin) temporarily paralyzes muscles for up to 3 months. It is usually reserved for those persons who failed to respond to fiber and nitroglycerin ointment. Surgical therapy is reserved for those persons who have received all of the above medical therapy and failed to respond. A small pricila or cut into the internal sphincter muscle provides rapid relief. Although this method is the most reliable in healing of an anal fissure, there is a very small risk of subsequent fecal incontinence.
[2024-07-24 07:54] VITALS: BP 107/78; PULSE 82; RESP 16; TEMP 36.3; O2SAT 97
[2024-07-24 08:04] VITALS: BP 114/71; PULSE 82; RESP 15; O2SAT 99
[2024-07-24 08:14] VITALS: BP 124/84; PULSE 77; RESP 17; O2SAT 99
[2024-07-24 08:23] VITALS: BP 147/93; PULSE 73; RESP 17; TEMP 36.6; O2SAT 97
== END 2024-07-24 07:24 | disposition home or self-care (01) ==
PROVIDERS: PCP Student in an Organized Health Care Education/Training Program; Visit Provider Internal Medicine Gastroenterology
PROC: (CPT 45378; principal; 2024-07-24 07:30)
DX: K62.5 Hemorrhage of anus and rectum (principal); K60.2 Anal fissure, unspecified; K62.89 Other specified diseases of anus and rectum; Z12.11 Encounter for screening for malignant neoplasm of colon; K64.0 First degree hemorrhoids
CPT/HCPCS: 45378; 81025; J7120

== ENCOUNTER 2024-10-01 07:45 | Outpatient (CLI) | payer OTHER, SELFPAY ==
[2024-10-01 08:33] LABS: Basophils % 0.5 % (0.1-2.0); Eosinophils # 0.2 K/mm3 (0.0-0.4); Eosinophils % 2.6 % (0.1-12.0); Lymphocytes # 1.9 K/mm3 (0.7-4.5); Lymphocytes % 23.8 % (10-50); Mean Corpuscular HGB Conc 33.3 g/dL (31.8-35.4); Mean Corpuscular Hemoglobin 30.8 pg (27.0-31.2); Mean Corpuscular Volume 92.5 fl (81-99); Mean Platelet Volume 10.8 fl (7.4-10.4); Monocytes # 0.7 K/mm3 (0.1-1.0); Monocytes % 8.6 % (1.7-9.3); Neutrophils % 64.1 % (37.0-80.0); Platelet Count 232 K/mm3 (142-424); Red Blood Count 4.54 M/mm3 (4.20-5.40); Red Cell Distribution Width 12.4 % (11.5-17.5); White Blood Count 7.8 K/mm3 (4.8-10.8)
[2024-10-01 09:08] LABS: Albumin Level 3.9 g/dl (3.5-5.0); Chloride 106 mmol/L (98-107); Potassium 4.1 mmoL/L (3.5-5.1); Sodium 137 mmol/L (136-145)
[2024-10-01 09:11] LABS: Alanine Aminotransferase 44 U/L (12-78); Albumin/Globulin Ratio 1.4 (1.1-1.8); Alkaline Phosphatase 48 U/L (38-126); Anion Gap 10.1 mEq/L (5-15); Aspartate Amino Transferase 39 U/L (14-36); Bilirubin,Total 1.5 mg/dl (0.2-1.3); Blood Urea Nitrogen 15 mg/dl (7-17); Calcium 8.8 mg/dl (8.4-10.2); Carbon Dioxide 25 mmol/L (22.0-30.0); Chol/HDL Ratio 3.2 (1-3.5); Cholesterol 186 mg/dl (140-200); Estimated Glomerular Filt Rate 60 ml/min (>60); GFR (African American) 73 ML/MIN (>60); Globulin 2.8 g/dL (1.3-3.2); Glucose 100 mg/dl (74-100); HDL Cholesterol 58 mg/dl (40-60); Magnesium 1.7 mg/dl (1.6-2.3); Total Protein,Serum 6.7 g/dl (6.3-8.2); Triglycerides 160 mg/dl (30-150); VLDL Cholesterol 32 mg/dL (0-40)
[2024-10-01 09:24] LABS: Direct LDL Cholesterol 93.34 mg/dL (100-129)
[2024-10-01 09:37] LABS: Hemoglobin A1C 5.4 % (4.0-6.0)
[2024-10-01 09:43] LABS: Thyroid Stimulating Hormone 1.01 uIU/mL (0.465-4.68)
[2024-10-01 09:52] LABS: HIV Combo NEGATIVE (Negative)
[2024-10-01 10:26] LABS: Hepatitis C Ab Qual. W/ RFX NEGATIVE (Negative)
[2024-10-01 11:51] LABS: 25-OH Vitamin D, Total 27.9 ng/mL (30-100)
[2024-10-01 12:01] LABS: Folate > 20.00 ng/mL
[2024-10-01 12:26] LABS: Vitamin B12 485 pg/mL (239-931)
[2024-10-02 10:12] LABS: Insulin Level Total 39.2 uIU/mL (2.6-24.9)
== END 2024-10-01 23:59 | disposition home or self-care (01) ==
LOC: LAB 07:46
PROVIDERS: PCP Physician Assistant; Visit Provider Obstetrics & Gynecology
DX: E03.9 Hypothyroidism, unspecified (principal); E55.9 Vitamin D deficiency, unspecified; R53.83 Other fatigue; N39.3 Stress incontinence (female) (male); R63.5 Abnormal weight gain; Z68.34 Body mass index [BMI] 34.0-34.9, adult
CPT/HCPCS: 36415; 80053; 80061; 82306; 82607; 82746; 83036; 83525; 83735; 84443; 85025; 86803; 87389

== ENCOUNTER 2024-10-28 16:17 | Outpatient (CLI) | payer OTHER, SELFPAY ==
--- NOTE | 2024-10-28 16:30 | MM_ITS ---
PROCEDURE INFORMATION: Exam: MG Bilateral Screening 3D Mammography Exam date and time: 10/28/2024 4:20 PM Age: 44 years old Clinical indication: Screening exam. TECHNIQUE: Imaging protocol: Bilateral Screening tomosynthesis and 2D mammography including computer-aided detection (CAD) when performed. COMPARISON: 1. MG MM DIG SCREENING MAMM BI W/CAD 07/24/2023 4:43 PM 2. MG MM DIG SCREENING MAMM BI W/CAD 06/08/2022 4:36 PM FINDINGS: MAMMOGRAPHY: Breast composition: There are scattered areas of fibroglandular density. Mass: No suspicious masses. Architectural distortion: None. Calcifications: No suspicious calcifications. Asymmetric density: None. Skin thickening: None. Axillary adenopathy: None. IMPRESSION: No mammographic evidence of malignancy. Annual screening is recommended unless otherwise clinically indicated. ASSESSMENT: BI-RADS Category 1: Negative.
== END 2024-10-28 23:59 | disposition home or self-care (01) ==
LOC: RAD 16:18
PROVIDERS: PCP Physician Assistant; Visit Provider Obstetrics & Gynecology
DX: Z12.31 Encounter for screening mammogram for malignant neoplasm of breast (principal)
CPT/HCPCS: 77063; 77067

== ENCOUNTER 2025-01-15 07:49 | Outpatient (CLI) | payer OTHER, SELFPAY ==
--- OUTSIDE RECORDS SUMMARY | 2025-01-15 07:50 | XMS_ITS | Continuity of Care Document ---
Author Organization [facility]. If a dditional information is needed, contact Health Information Management at [phone] Address [address] [id number] Phone
--- OUTSIDE RECORDS SUMMARY | 2025-01-15 08:05 | XMS_ITS | Patient Health Record ---
Author Organization [id number] [facility] [place] 2[place]ICAL Address [address] [facility] [address] [place], [place] [id number] Support Name Relationship Address Phone Julieta Dejesus Guarantor Unknown Reason For Referral No Information Plan Of Treatment No Information Insurance Providers Payer Name Payer Address Payer Phone Subscriber Number Group Number Insured Name Patient Relationship to Insured Coverage Start Date Coverage End Date [facility] [address] [place], [place] [id number] Julieta Dejesus Self - patient is the insured 4
[2025-01-15 08:14] LABS: Hematocrit 42.7 % (37.0-47.0); Hemoglobin 14.5 g/dL (12.2-16.2); Immature Granulocytes % 0.3 %; Mean Corpuscular HGB Conc 34.0 g/dL (31.8-35.4); Mean Corpuscular Hemoglobin 30.9 pg (27.0-31.2); Mean Corpuscular Volume 90.9 fl (81-99); Nucleated Red Blood Cells % 0 %; Platelet Count 231 K/mm3 (142-424); Red Blood Count 4.70 M/mm3 (4.20-5.40); Red Cell Distribution Width-SD 41.2 fL; White Blood Count 7.3 K/mm3 (4.8-10.8)
[2025-01-15 08:44] LABS: Alanine Aminotransferase 33 U/L (12-78); Albumin Level 4.1 g/dl (3.5-5.0); Albumin/Globulin Ratio 1.4 (1.1-1.8); Alkaline Phosphatase 48 U/L (38-126); Anion Gap 17.2 mEq/L (5-15); Aspartate Amino Transferase 30 U/L (14-36); Bilirubin,Total 1.2 mg/dl (0.2-1.3); Blood Urea Nitrogen 14 mg/dl (7-17); Calcium 9.6 mg/dl (8.4-10.2); Carbon Dioxide 23 mmol/L (22.0-30.0); Chloride 103 mmol/L (98-107); Cholesterol 211 mg/dl (140-200); Creatinine,Serum 0.90 mg/dl (0.52-1.04); Estimated Glomerular Filt Rate 68 ml/min (>60); GFR (African American) 82 ML/MIN (>60); Globulin 3.0 g/dL (1.3-3.2); Glucose 112 mg/dl (74-100); HDL Cholesterol 55 mg/dl (40-60); Magnesium 1.8 mg/dl (1.6-2.3); Potassium 4.2 mmoL/L (3.5-5.1); Sodium 139 mmol/L (136-145); Total Protein,Serum 7.1 g/dl (6.3-8.2); Triglycerides 187 mg/dl (30-150)
[2025-01-15 08:52] LABS: Hemoglobin A1C 6.8 % (4.0-6.0)
[2025-01-15 09:01] LABS: 25-OH Vitamin D, Total 41.5 ng/mL (30-100)
[2025-01-15 09:14] LABS: Thyroid Stimulating Hormone 0.24 uIU/mL (0.465-4.68)
[2025-01-15 09:33] LABS: Vitamin B12 474 pg/mL (239-931)
[2025-01-15 10:56] LABS: Folate > 20.00 ng/mL
[2025-01-16 06:10] LABS: Insulin Level Total 55.2 uIU/mL (2.6-24.9)
== END 2025-01-15 23:59 | disposition home or self-care (01) ==
LOC: LAB 07:50
PROVIDERS: PCP Physician Assistant; Visit Provider Obstetrics & Gynecology
DX: E03.9 Hypothyroidism, unspecified (principal); R63.5 Abnormal weight gain; E78.5 Hyperlipidemia, unspecified; E55.9 Vitamin D deficiency, unspecified
CPT/HCPCS: 36415; 80053; 80061; 82306; 82607; 82746; 83036; 83525; 83735; 84443; 85025

== ENCOUNTER 2025-03-20 09:59 | Outpatient (CLI) | payer OTHER, SELFPAY ==
[2025-03-20 13:51] LABS: Free T4 (Free Thyroxine) 1.41 ng/dl (0.78-2.19)
[2025-03-20 14:13] LABS: Thyroid Stimulating Hormone 1.37 uIU/mL (0.465-4.68)
== END 2025-03-20 23:59 | disposition home or self-care (01) ==
LOC: LAB 09:59
PROVIDERS: PCP Family Medicine; Visit Provider Student in an Organized Health Care Education/Training Program
DX: E03.9 Hypothyroidism, unspecified (principal)
CPT/HCPCS: 36415; 84439; 84443

== ENCOUNTER 2025-06-17 11:43 | Outpatient (CLI) | payer OTHER, SELFPAY ==
[2025-06-17 15:04] LABS: Alanine Aminotransferase 17 U/L (12-78); Albumin Level 4.7 g/dl (3.5-5.0); Anion Gap 13.5 mEq/L (5-15); Aspartate Amino Transferase 29 U/L (14-36); Bilirubin,Total 1.6 mg/dl (0.2-1.3); Blood Urea Nitrogen 17 mg/dl (7-17); Calcium 9.7 mg/dl (8.4-10.2); Carbon Dioxide 23 mmol/L (22.0-30.0); Chloride 105 mmol/L (98-107); Creatinine,Serum 1.10 mg/dl (0.52-1.04); Estimated Glomerular Filt Rate 54 ml/min (>60); GFR (African American) 65 ML/MIN (>60); Globulin 3.2 g/dL (1.3-3.2); Glucose 81 mg/dl (74-100); Potassium 4.5 mmoL/L (3.5-5.1); Sodium 137 mmol/L (136-145); Total Protein,Serum 7.9 g/dl (6.3-8.2)
[2025-06-17 15:05] LABS: Albumin/Globulin Ratio 1.5 (1.1-1.8); Alkaline Phosphatase 54 U/L (38-126)
[2025-06-17 16:29] LABS: Hemoglobin A1C 5.1 % (4.0-6.0)
--- OUTSIDE RECORDS SUMMARY | 2025-06-17 20:18 | XMS_ITS ---
Author Organization Unknown ENCOUNTERS Encounter Performer Location Date Diagnosis Diagnosis Status Pre Admit [address] [place] [address] [id number] Emergency [address] [place] [address] [id number] [place] Emergency [address] [place] [address] [id number] ESTRELLA *Note: Encounters from your own facility or health system may be excluded. Allergies, Adverse Reactions, Alerts Allergen Type Severity Identification Date Penicillins drug allergy 0 [id number] Sulfa (Sulfonamide Antibiotics) drug allergy 0 [id number] Medications Name Date Quantity Days Supplied [facility] Number
== END 2025-06-17 23:59 | disposition home or self-care (01) ==
LOC: LAB.DROPOF 20:11
PROVIDERS: PCP Family Medicine; Visit Provider Family Medicine
DX: E11.9 Type 2 diabetes mellitus without complications (principal)
CPT/HCPCS: 80053; 82043; 82570; 83036